=== PATIENT | female | born 1955 | race Caucasian/White ===

== ENCOUNTER → 2016-04-01 | Outpatient (CLI) | payer BC ==
[~2016-04-01] MED LIST: EFF/375 PO; EFFSR150 PO; LISI40TA PO; PANT40TA PO; SYMIN/8045 INH
[2016-04-01 11:28] LABS: BASO % 1.5 %; BASO ABS # 0.05 K/uL (0-0.2); COMPLETE YES; EOS % 2.1 %; HEMATOCRIT 38.4 % (37-47); LYMPH ABS # 1.12 K/uL (1.2-3.4); MEAN CELL VOLUME 95.8 fL (80-100); MEAN CORPUSCULAR HEMOGLOBIN 32.7 pg (25-34); MEAN CORPUSCULAR HGB CONC 34.1 g/dl (32-36); MEAN PLATELET VOLUME 10.5 fL (7.4-10.4); MONO % 21.5 %; NEUT % 41.9 %; PLATELET COUNT 345 K/uL (130-400); RED BLOOD COUNT 4.01 M/uL (4.2-5.4); WHITE BLOOD COUNT 3.39 K/uL (4.8-10.8)
[2016-04-01 11:38] LABS: ALT/SGPT 31 U/L (12-78); AST/SGOT 25 U/L (15-37); BLOOD UREA NITROGEN 18 mg/dl (7-18); BUN/CREATININE RATIO 22.2 (10-20); CALCIUM 8.7 mg/dl (8.5-10.1); CARBON DIOXIDE 28 mmol/L (21-32); CHLORIDE 103 mmol/L (98-107); CREATININE 0.79 mg/dl (0.60-1.20); GLUCOSE 95 mg/dl (70-99); POTASSIUM 4.1 mmol/L (3.5-5.1); SODIUM 138 mmol/L (136-145)
[2016-04-01 11:48] LABS: ALB/GLOB RATIO 1.2 (0.9-2); ALKALINE PHOSPHATASE 70 U/L (45-117); CHOLESTEROL 256 mg/dl (0-200); HDL CHOLESTEROL 127 mg/dl; LDL CHOLESTEROL CALCULATED 121 mg/dl; TRIGLYCERIDES 39 mg/dl (0-150); VERY LOW DENSITY LIPOPROT CALC 8 mg/dl
== END | disposition home or self-care (01) ==
LOC: C.LABBC 07:59
PROVIDERS: ATTEND Internal Medicine
DX: Z00.00 Encounter for general adult medical examination without abnormal findings (principal)

== ENCOUNTER → 2016-07-05 | Outpatient (CLI) | payer BC ==
--- NOTE | 2016-07-06 12:47 | MAMMOGRAPHY REPORT ---
BILATERAL DIGITAL SCREENING MAMMOGRAM TOMOSYNTHESIS WITH CAD: 07/05/2016 CLINICAL HISTORY: Routine screening. Patient has no complaints. TECHNIQUE: Breast tomosynthesis in addition to standard 2D mammography was performed. Current study was also evaluated with a Computer Aided Detection (CAD) system. COMPARISON: Comparison is made to exams dated: 06/29/2015 mammogram, 05/13/2013 mammogram, 05/10/2012 m ammogram, 05/05/2011 mammogram, 05/04/2010 mammogram, and 04/28/2009 mammogram - [facility]. BREAST COMPOSITION: The tissue of both breasts is heterogeneously dense, which may obscure small ma sses. FINDINGS: There is a questionable area of architectural distortion in the posterior left breast, sl ightly lateral to the nipple on the CC view, for which additional spot compression tomosynthesis vie ws and possibly ultrasound are recommended. No other suspicious mass, architectural distortion or cluster of microcalcifications is seen. IMPRESSION: ACR BI-RADS CATEGORY 0: INCOMPLETE EVALUATION: NEED ADDITIONAL IMAGING EVALUATION The questionable area of architectural distortion in the slightly lateral, posterior left breast nee ds additional evaluation. The patient will be called to schedule an appointment. Approximately 10% of breast cancers are not detected with mammography. A negative mammographic repor t should not delay biopsy if a clinically suggestive mass is present. Stacey Dent M.D. ay/:07/05/2016 17:50:47 Rental Agent: Rosa FONTAINE(Eros)(M), [facility] letter sent: Addl Imaging 0 BI-RADS Code: ACR BI-RADS Category 0: Incomplete Evaluation: Need Additional Imaging Evaluation
== END | disposition home or self-care (01) ==
LOC: C.MAMM 13:44
PROVIDERS: ATTEND Obstetrics & Gynecology
DX: Z12.31 Encounter for screening mammogram for malignant neoplasm of breast (principal)

== ENCOUNTER → 2016-07-26 | Outpatient (CLI) | payer BC ==
--- NOTE | 2016-07-26 13:08 | MAMMOGRAPHY REPORT ---
UNILATERAL LEFT DIGITAL DIAGNOSTIC MAMMOGRAM TOMOSYNTHESIS AND TARGETED LEFT ULTRASOUND: 07/26/2016 CLINICAL HISTORY: 61-year-old woman called back from screening mammography for possible architectura l distortion in the posterior left breast, slightly lateral to the posterior nipple line on the CC v iew. No family history of breast cancer. TECHNIQUE: Spot compression left CC and MLO tomosynthesis images were obtained. COMPARISON: Comparison is made to exams dated: 07/05/2016 mammogram, 06/29/2015 mammogram, 05/13/2013 m ammogram, 05/10/2012 mammogram, 05/05/2011 mammogram, and 05/04/2010 mammogram - [facility]ter. BREAST COMPOSITION: The tissue of the left breast is heterogeneously dense, which may obscure small masses. FINDINGS: The spot compression left CC tomosynthesis images and reconstructed CC view demonstrate a persistent 7 mm irregular asymmetry with questionable associated architectural distortion in the fa r posterior, slightly lateral left breast, near the fatglandular interface. When comparing to prio r available mammograms, this appearance is somewhat similar to the 2015 and 2013 exams, but it was n ot definitely seen to appear similar prior to 2013 and remains indeterminate. No corresponding abno rmality is identified on the spot compression MLO views performed in both the superior and inferior aspect of the breasts. Further evaluation with ultrasound was performed. Real-time high resolution sonographic evaluation was performed in the left breast 11:00 through 1:00 , retroareolar, periareolar and 5:00 through 7:00 axes of the left breast. Normal fibroglandular ti ssue is seen without a discrete solid or cystic mass. IMPRESSION: ACR BI-RADS CATEGORY 0: INCOMPLETE EVALUATION: NEED ADDITIONAL IMAGING EVALUATION, TAR GETED ULTRASOUND ACR BI-RADS CATEGORY 0: INCOMPLETE EVALUATION: NEED ADDITIONAL IMAGING EVALUATION There is a persistent 7 mm irregular asymmetry with questionable associated architectural distortion in the posterior left breast, slightly lateral to the posterior nipple line on the CC view. This i s not clearly identified on the MLO view and no sonographic correlate was seen. Therefore, further evaluation with a contrast-enhanced breast MRI is recommended to exclude the possibility of a suspic ious enhancing mass within the left breast. These results and recommendations were discussed with the patient at the time of the exam. Approximately 10% of breast cancers are not detected with mammography. A negative mammographic repor t should not delay biopsy if a clinically suggestive mass is present. Stacey Dent M.D. ay/:07/26/2016 09:26:06 Horticultural Worker: Andreea FONTAINE(Eros)(M), [facility] letter sent: Addl Imaging 0 BI-RADS Code: ACR BI-RADS Category 0: Incomplete Evaluation: Need Additional Imaging Evaluation Ul trasound BI-RADS: ACR BI-RADS Category 0: Incomplete Evaluation: Need Additional Imaging Evaluation
== END | disposition home or self-care (01) ==
LOC: C.MAMM 08:01
PROVIDERS: ATTEND Obstetrics & Gynecology
DX: N64.89 Other specified disorders of breast (principal)

== ENCOUNTER → 2016-07-29 | Outpatient (CLI) | payer BC ==
[2016-07-29 11:23] LABS: CREATININE 0.85 mg/dl (0.60-1.20)
== END | disposition home or self-care (01) ==
LOC: C.LABBC 07:38
PROVIDERS: ATTEND Obstetrics & Gynecology
DX: R92.8 Other abnormal and inconclusive findings on diagnostic imaging of breast (principal)

== ENCOUNTER → 2016-08-03 | Outpatient (CLI) | payer BC ==
[~2016-08-03] MED LIST changes: +GADAVIST IV PRN
--- NOTE | 2016-08-03 13:16 | MAMMOGRAPHY REPORT ---
BREAST MRI OF BOTH BREASTS : 08/03/2016 CLINICAL HISTORY: Asymmetry seen within the posterior left breast on the cc mammographic view of a r ecent diagnostic workup, for which no sonographic correlate was evident. COMPARISON: Comparison is made to exams dated: 07/26/2016 mammogram, 07/05/2016 mammogram, 06/29/2015 ma mmogram, 05/13/2013 mammogram, 05/10/2012 mammogram, and 12/06/2011 mammogram - [facility] enter. Technique: The patient was placed prone in a dedicated breast imaging coil. Precontrast axial T1-we ighted, axial T2-weighted fat saturation, and axial T1-weighted fat saturation images were obtained. After the administration of 6.5 mL of Gadavist IV contrast, sequential T1-weighted fat saturation images were obtained. Subtraction images were obtained of the dynamic contrast enhanced sequences, and 3-D reformations were performed. The [employer] software was used for kinetic analysis. Findings: There is mild background parenchymal enhancement involving bilateral breasts. There are no suspicio us enhancing masses or areas of abnormal non-mass enhancement seen within either breast. Specifical ly, there is no abnormal enhancement seen in the region of the asymmetry in the posterior left breas t on the left cc view from the diagnostic workup dated 07/26/2016. Given the lack of corresponding MR I abnormality and given that the finding appears similar to some of the prior exams including the exam, the asymmetry is benign and felt to represent normal fibroglandular tissue. There is no evidence of axillary adenopathy. The chest wall structures are negative. Extramammary soft tissues are unremarkable. IMPRESSION: ACR BI-RADS CATEGORY 2: BENIGN No MRI evidence of malignancy in either breast. No MRI abnormality in the region of the left breast mammographic asymmetry. Given the lack of corresponding MRI abnormality and given that the asymmet ry appears similar to prior exams including the 05/13/2013 exam, the asymmetry is benign and felt to represent normal fibroglandular tissue. Return to routine annual mammography schedule is nel Fiore M.D. /:08/03/2016 12:38:40 Research Lab Assistant: executive account manager, [facility] letter sent: Normal 1/2 BI-RADS Code: ACR BI-RADS Category 2: Benign
== END | disposition home or self-care (01) ==
LOC: C.MRI 06:28
PROVIDERS: ATTEND Obstetrics & Gynecology
DX: R92.8 Other abnormal and inconclusive findings on diagnostic imaging of breast (principal)

== ENCOUNTER → 2016-09-21 | Outpatient (CLI) | payer BC ==
[~2016-09-21] MED LIST changes: -GADAVIST IV PRN
--- NOTE | 2016-09-21 15:30 | DIAGNOSTIC IMAGING REPORT ---
CHEST 2 VIEWS ROUTINE CLINICAL HISTORY: K21.9 Gastroesophageal reflux disease without [id number] Head chest pain COMPARISON STUDY: 09/11/2014 FINDINGS: Lungs are clear. Calcified granuloma right upper lung. Diaphragms are smooth. IMPRESSION: Chronic change. No acute process. Electronically signed by: Jeremiah Tucker M.D. 09/21/2016 3:28 PM Dictated Date/Time: 09/21/2016 3:28 PM
[2016-09-21 16:56] LABS: BASO % 0.4 %; BASO ABS # 0.03 K/uL (0-0.2); COMPLETE YES; EOS % 0.6 %; HEMATOCRIT 39.5 % (37-47); LYMPH % 15.6 %; LYMPH ABS # 1.27 K/uL (1.2-3.4); MEAN CELL VOLUME 96.8 fL (80-100); MEAN CORPUSCULAR HEMOGLOBIN 31.1 pg (25-34); MEAN CORPUSCULAR HGB CONC 32.2 g/dl (32-36); MEAN PLATELET VOLUME 10.3 fL (7.4-10.4); MONO % 9.2 %; NEUT % 74.2 %; PLATELET COUNT 373 K/uL (130-400); RED BLOOD COUNT 4.08 M/uL (4.2-5.4); WHITE BLOOD COUNT 8.14 K/uL (4.8-10.8)
[2016-09-21 17:56] LABS: LYME DISEASE AB IGG NEG (NEG); LYME DISEASE AB IGM NEG (NEG)
== END | disposition home or self-care (01) ==
LOC: C.RADBC 14:15
PROVIDERS: ATTEND Physician Assistant Medical
DX: R50.9 Fever, unspecified (principal); K21.9 Gastro-esophageal reflux disease without esophagitis; R51 Headache; Z11.59 Encounter for screening for other viral diseases

== ENCOUNTER → 2016-11-09 | Outpatient (CLI) | payer BC ==
[2016-11-09 16:57] LABS: URINE APPEARANCE CLEAR (CLEAR); URINE BILIRUBIN NEG (NEG); URINE COLOR DK YELLOW; URINE NITRITE NEG (NEG); URINE SPECIFIC GRAVITY 1.025 (1.000-1.030); UROBILINOGEN NEG (NEG)
[2016-11-09 16:58] LABS: MANUAL MICROSCOPIC REQUIRED? NO; REVIEW REQ? NO
== END | disposition home or self-care (01) ==
LOC: C.LABSPEC 16:16
PROVIDERS: ATTEND Obstetrics & Gynecology
DX: R39.89 Other symptoms and signs involving the genitourinary system (principal)

== ENCOUNTER → 2017-07-06 | Outpatient (CLI) | payer OTHER ==
--- NOTE | 2017-07-07 07:44 | MAMMOGRAPHY REPORT ---
BILATERAL DIGITAL SCREENING MAMMOGRAM TOMOSYNTHESIS WITH CAD: 07/06/2017 CLINICAL HISTORY: Routine screening. Patient has no complaints. TECHNIQUE: Breast tomosynthesis in addition to standard 2D mammography was performed. Current study was also evaluated with a Computer Aided Detection (CAD) system. COMPARISON: Comparison is made to exams dated: 08/03/2016 breast MRI, 07/26/2016 ultrasound, 07/26/2016 m ammogram, 07/05/2016 mammogram, 06/29/2015 mammogram, and 05/13/2013 mammogram - [facility] nter. BREAST COMPOSITION: The tissue of both breasts is heterogeneously dense, which may obscure small mas ses. FINDINGS: No suspicious masses, calcifications, or areas of architectural distortion are noted in ei ther breast. There has been no significant interval change compared to prior exams. IMPRESSION: ACR BI-RADS CATEGORY 1: NEGATIVE There is no mammographic evidence of malignancy. A 1 year screening mammogram is recommended. The pa tient will receive written notification of the results. Approximately 10% of breast cancers are not detected with mammography. A negative mammographic report should not delay biopsy if a clinically suggestive mass is present. Edie Fiore M.D. ah/:07/06/2017 15:24:57 Gis Web Developer: Rosa Fields RT(R)(M), [facility] letter sent: Normal 1/2 BI-RADS Code: ACR BI-RADS Category 1: Negative
== END | disposition home or self-care (01) ==
LOC: C.MAMM 12:19
PROVIDERS: ATTEND Obstetrics & Gynecology
DX: Z12.31 Encounter for screening mammogram for malignant neoplasm of breast (principal)

== ENCOUNTER 2024-04-04 15:09 | Observation (INO) ==
--- NOTE | 2024-04-04 15:16 | ED Triage Note ---
Date of Service April 04, 2024 Provider in Triage Author: Adal Merino History of Present Illness This patient was briefly evaluated while in triage. An abbreviated physical exam was performed. 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 Nontender to palpation. NEURO: ambulatory into triage with steady gait, speech clear, no facial droop, no extremity weakness Initial orders for labs and / or imaging were placed and patient was placed in the waiting area until a bed is available. Please see further documentation for the full ED course.
[2024-04-04 15:49] LABS: Basophils # (auto) 0.03 K/uL (0.00-0.20); Basophils % (auto) 0.8 %; Eosinophils # (auto) 0.02 K/uL (0.00-0.50); Eosinophils % (auto) 0.6 %; Hematocrit (blood only) 39.9 % (37.0-47.0); Hemoglobin 13.9 g/dl (12.0-16.0); Immature Granulocytes # (auto) 0.02 K/uL (0.01-0.20); Immature Granulocytes % (auto) 0.6 %; Lymphocytes # (auto) 1.13 K/uL (1.20-3.40); Lymphocytes % (auto) 31.7 %; Mean Corpuscular Hemoglobin 32.3 pg (25.0-34.0); Mean Corpuscular Hgb Conc 34.8 g/dL (32.0-36.0); Mean Corpuscular Volume 92.6 fL (80.0-100.0); Mean Platelet Volume 9.6 fL (9.4-12.4); Monocytes # (auto) 0.71 K/uL (0.11-0.59); Monocytes % (auto) 19.9 %; Neutrophils # (auto) 1.66 K/uL (1.40-6.50); Neutrophils % (auto) 46.4 %; Platelet Count 299 K/uL (130-400); RDW Coefficient of Variation 12.1 % (11.5-14.5); RDW Standard Deviation 41.5 fL (36.4-46.3); Red Blood Count 4.31 M/uL (4.20-5.40); White Blood Count 3.57 K/ul (4.8-10.8)
[2024-04-04 16:02] LABS: INR 0.9 (0.9-1.1); Partial Thromboplastin Ratio 1.1; Partial Thromboplastin Time 30 Seconds (21-31); Prothrombin Time 10.3 Seconds (9.0-12.0)
[2024-04-04 16:13] LABS: Appearance Urine Turbid (Clear); Bacteria Urine Automated None Seen (None Seen); Bilirubin Urine Negative (Negative); Blood Urine 2+ (Negative); Calcium Oxalate Crystals Urine Present (None Prsent); Color Urine Yellow; Epithelial Cell Urine Auto 0-2 /hpf (0-2); Glucose Urine UA Negative (Negative); Hyaline Casts Urine Present /lpf (None Presnt); Ketones Urine Negative (Negative); Leukocyte Esterase Urine 3+ (Negative); Nitrite Urine Negative (Negative); Protein Urine Negative (Negative); RBC Urine Automated >20 /hpf (0-2); Specific Gravity Urine 1.011 (1.000-1.030); Urobilinogen Urine Negative (Negative); WBC Urine Automated 0-5 /hpf (0-5); pH Urine 5.5 (4.5-7.5)
[2024-04-04 16:18] LABS: Troponin I High Sensitivity 5.6 pg/ml (0-14)
--- NOTE | 2024-04-04 16:25 | XRay Report ---
EXAM: Radiograph of the Chest 1 View INDICATION: Weakness and confusion. TECHNIQUE: Frontal view of the chest. COMPARISON: 02/27/2024 and 02/02/2024 FINDINGS: Lungs and pleural spaces: Stable dense nodule likely granuloma in the right upper lobe measuring approximately 8 x 12 mm. Relatively lucency in the apices stable consistent with COPD. No consolidation or pulmonary edema. No pleural effusion or pneumothorax. Heart: Shape and configuration within normal limits allowing for technique. Mediastinum: Normal contour. Bones/joints: No fracture, erosion or dislocation. Soft tissues: No abnormality noted. No radiopaque foreign body noted. Upper abdomen: No abnormality noted. IMPRESSION: No acute cardiopulmonary disease. ACT 112: Negative or not required by law. Electronically signed by Karolina Glasgow 04-04-2024 4:24 PM
[2024-04-04 16:34] LABS: Bilirubin,Total 0.4 mg/dl (0.2-1.0); Calcium 8.2 mg/dl (8.6-10.3); Magnesium 1.8 mg/dl (1.7-2.4); Potassium 3.6 mmol/L (3.5-5.1)
[2024-04-04 16:40] LABS: Albumin Globulin Ratio 1.4 (0.9-2); BUN Creatinine Ratio 15.8 (10-20); Globulin 2.9 gm/dl (2.5-4.0); Total Protein 6.9 gm/dl (6.0-8.3)
[2024-04-04 16:41] LABS: Adenovirus PCR Not Detected (NotDetected); Bordetella parapertussis PCR Not Detected (NotDetected); Bordetella pertussis PCR Not Detected (NotDetected); Chlamydia pneumoniae PCR Not Detected (NotDetected); Coronavirus 229E PCR Not Detected (NotDetected); Coronavirus CoV-2 (COVID19)PCR Not Detected (NotDetected); Coronavirus HKU1 PCR Not Detected (NotDetected); Coronavirus NL63 PCR Not Detected (NotDetected); Coronavirus OC43PCR Not Detected (NotDetected); Human Metapneumovirus PCR Not Detected (NotDetected); Influenza A (H3) PCR DETECTED (NotDetected); Influenza B PCR Not Detected (NotDetected); Mycoplasma pneumoniae PCR Not Detected (NotDetected); Parainfluenza Virus 1 PCR Not Detected (NotDetected); Parainfluenza Virus 2 PCR Not Detected (NotDetected); Parainfluenza Virus 3 PCR Not Detected (NotDetected); Parainfluenza Virus 4 PCR Not Detected (NotDetected); Respiratory Syncytial VirusPCR Not Detected (NotDetected); Rhinovirus/Enterovirus PCR Not Detected (NotDetected)
[2024-04-04] MEDS: OPTIRAY 320 125ml IV ONE (16:51)
--- NOTE | 2024-04-04 16:51 | Electrocardiogram Report ---
Test Reason : Blood Pressure : */* mmHG Vent. Rate : 77 BPM Atrial Rate : 77 BPM P-R Int : 154 ms QRS Dur : 88 ms QT Int : 392 ms P-R-T Axes : 60 53 75 degrees QTcB Int : 443 ms Normal sinus rhythm Normal ECG When compared with ECG of 07-Nov-2023 19:34, No significant change was found Confirmed by Filippo Cano ([id number]) on 04/04/2024 4:50:55 PM Referred By: Confirmed By: Filippo Cano
--- NOTE | 2024-04-04 16:58 | CT Scan Report ---
Clinical History: Neurological deficit Technique: Axial computed tomography images were obtained of the brain without intravenous contrast. Comparison is made to the prior CT dated 11/07/2023 Findings: There is unchanged cerebral atrophy, within expected limits for the patient's age. Areas of decreased attenuation are seen within the periventricular white matter, likely representing chronic small vessel ischemic disease. There is no definite sign of acute or old infarction. No intracranial hemorrhage is evident. No definite mass lesion is seen on this noncontrast examination. There is no midline shift or other form of herniation. No hydrocephalus is seen. No fracture is identified. The orbits and the visualized paranasal sinuses appear unremarkable. The mastoid air cells appear clear. Impression: 1. Cerebral atrophy and chronic small vessel ischemic disease 2. Otherwise unremarkable noncontrast CT of the brain Electronically signed by Temo Turner 04-04-2024 4:57 PM
--- NOTE | 2024-04-04 17:17 | CT Scan Report ---
Clinical history: Neurological deficit Technique: Axial computed tomography images were obtained of the brain after the administration of intravenous contrast according to the CT angiogram protocol Findings: No definite stenosis or aneurysm is seen of the anterior, middle, or posterior cerebral artery circulations. The visualized vertebral arteries and the basilar artery appear unremarkable Impression: No definite stenosis or aneurysm of the intracranial arteries Electronically signed by Temo Turner 04-04-2024 5:11 PM
--- NOTE | 2024-04-04 17:18 | CT Scan Report ---
Clinical history: Altered mental status Technique: Axial computed tomography images were obtained of the neck after the administration of intravenous contrast according to the CT angiogram protocol Findings: There is a mild stenosis of the mid left common carotid artery with 30-40% diameter narrowing. There is a mild stenosis of the left carotid bulb with approximately 30% diameter narrowing. The remainder of the left internal carotid artery appears unremarkable No stenosis is seen of the right common carotid artery. The right carotid bulb appears normal. There is mild calcified plaque in the proximal right internal carotid artery, with less than 25% diameter narrowing. No stenosis of the external carotid arteries is seen The right vertebral artery is dominant. There is mild plaque in the distal right vertebral artery, without significant stenosis. The visualized thoracic aorta appears unremarkable There is multilevel degenerative disc disease and osteoarthritis of the cervical spine. There is a partially calcified nodule in the right upper lobe, likely a benign granuloma. There are irregular opacities in the lung apices, likely due to pleural-parenchymal scarring. There is apparent peripheral bronchial plugging in the right upper lobe. There is partially visualized mediastinal adenopathy Impression: 1. Mild stenosis of left carotid bulb 2. Mild stenosis of the mid left CCA 3. Mild plaque in the proximal right ICA, without stenosis 4. Mediastinal adenopathy, nonspecific in nature. Chest CT could be obtained for further evaluation Electronically signed by Temo Turner 04-04-2024 5:17 PM
[2024-04-04] MEDS: ASPIRIN CHEW 324 MG PO STA (18:06)
[2024-04-04] MEDS: OSELTAMIVIR PHOSPHATE 75 MG CAP PO STA (18:06)
--- NOTE | 2024-04-04 20:05 | History & Physical Report ---
Date of Service April 04, 2024 Assessment & Plan (1) Aphasia: (2) Influenza A: Plan 68-year-old female PMHx HLD, HTN, asthma, OP, MS, and vitamin B12 deficiency presenting to ED for an aphasic episode. States that the episode around 1200- 1300 today arrival, lasting approximately 30 minutes in duration and then resolved. Was unable to read news article or prescription bottles, but able to understand spoken words. No additional neurological symptoms were experienced at this time. Upon admission, symptoms had resolved but she came to be evaluated as recommended by her PCP. #Aphasic episode, resolved Presenting w/ aphasic episode lasting approximately 30 minutes, without ad ditional neuro deficits, no deficits on exam, no current symptoms. Case is discussed between ED physician and neurologist recommending aspirin and stroke workup. CT head and CTA head/neck w/o acute findings. ABCD2 score 3 (age, elevated BP, duration of symptoms). - CT head cerebral atrophy chronic small vessel disease; head CTA stenosis or aneurysm intracranial arteries; neck CTA mild stenosis L carotid bulb and L CCA, mild plaque in proximal R ICA without stenosis, mediastinal adenopathy (h/o pulm nodules per chart) - Troponin 5.6; EKG normal sinus rate 77 bpm; pending 2D Echo Bubble - A1c (07/2023) 5.9%, pending repeat; lipid panel (2020) total 225, LDH 166, HDL 73, TG 67, pending repeat- On rosuvastatin 5mg 3x/w (MWF) - Will increase to high intensity pending lipid results - Initiate DVT prevention therapy - lovenox - following MRI - ASA 324mg given in ED; continue 81mg daily - No DAPT added, ABCD2 score 3 - Will allow for permissive HTN until MRI results, losartan held at admission - Labetalol 10mg IV prn q10min SBP > 200 - MRI pending #Influenza A ~ 1 week of cough, body aches, sore throat; No alleviating symptoms. Did not get yearly influenza vaccine in the past but does normally receive this vaccine - BioFire positive for influenza A; CXR without acute cardiopulmonary disease; Lungs unremarkable on exam - Tamiflu 75mg BID daily; added Chloraseptic spray for sore throat prn - Given h/o asthma, throat pain when coughing, and fear of coughing as to not aggravate throat pain - Inhalers switched to nebs #Hyponatremia Likely secondary to poor oral intake over past week from illness; no overt symptoms at this time. Clinically hypovolemic. - Na 131; glucose WNL-- Deferred serum osmol, urine Na, and urine osmol at time of admission; if Na does not improve then consider obtaining - Promote oral hydration, will add fluids as necessary following MRI - BMP am #Hypocalcemia Asymptomatic currently, on calcium carbonate 1000mg daily as outpatient. - Ca 8.2, albumin WNL - Increase Ca carb to twice daily- Recheck am #Multiple sclerosis, Uhthoff phenomenon- Recent neurology visit 10/2023 in [place], most recent MRI May 2022 mild lesion in periventricular area involving corpus callosum, MRI spine with chronic C2 demyelination lesion #Asthma/allergic rhinitis- Inhalers adjusted to nebs for inpatient course but then to switch back to inhalers at discharge, loratadine, montelukast #HTN- Losartan #HLD- Rosuvastatin 5mg 3x/week as outpatient (M//) #OAB- Follows with urology; Vibegron #Anxiety- Venlafaxine #OP- Prolia SQ outpatient, not to be given inpatient Dispo: Admit, med telemetry VTE prophylaxis: Lovenox This document was dictated utilizing [employer]. Please excuse any grammatical errors that may be secondary to use of this software. Admission and Anticipated Discharge Date Admission Date: 04/04/2024 History of Present Illness Chief Complaint: Aphasia Primary Care Provider: Rama Morris MD 68-year-old female PMHx HLD, HTN, asthma, OP, MS, and vitamin B12 deficiency presenting to ED for an aphasic episode. States that the episode around 1200- 1300 today arrival, lasting approximately 30 minutes in duration and then resolved. States that she was sitting on her couch reading the news when suddenly she was unable to understand the words that were on the article. States after that she decided to go get a drink because she thought maybe she was dehydrated and then took her antidepressants at that time as well. She states that whenever she went to her medicine once, she was only able to recognize the bottle of antidepressants as the bottle is larger in size than her other medications, but she was unable to read what was on any of the bottles or understand what they said. States that she got more to drink and then sat back down on the couch and was watching an episode on President James where people were sitting in remembrance of him, however she could not recall who the people were more read the words on the screen but she could understand the words that were being sung. She states this did resolve rather momentarily with no more than 30 minutes of duration total, she felt "spacey" after the episode. Denying any additional symptoms at this time, to include weakness, numbness/tingling, headache, vision changes, or dizziness. Also reports she has been sick for the past week with headache, sore throat, body aches and cough. She is not active this week as she was trying to heal from the illness, but her main complaint was sore throat whenever she is coughing. She is denying chest pain, shortness of breath, palpitations, abdominal pain, N/V/D/C, or LUTS. Patient only took her antidepressants today does not believe that she took other medications. Please see Dr. Jurado's attestation for adjustments/additions to treatment plan. Allergies Allergy/AdvReac Type Severity Reaction Status Date / Time erythromycin base Allergy Severe chest pain Verified 04/04/24 18:08 DELANEY Inhibitors Allergy HEADACHE Verified 04/04/24 18:08 bupropion [From Wellbutrin] Allergy "DIDN'T Verified 04/04/24 18:08 WORK" citalopram [From Celexa] Allergy "DIDN'T Verified 04/04/24 18:08 WORK" glatiramer (copolymer 1) Allergy "SPLITTING Verified 04/04/24 18:08 [From Copaxone] HEADACHE," INJECTION SITE INFLAMMED AND RED sertraline [From Zoloft] Allergy "DIDN'T Verified 04/04/24 18:08 WORK" alendronate sodium AdvReac Severe Joint Pain Verified 04/04/24 18:08 naltrexone AdvReac Intermediate depression Verified 04/04/24 18:08 Home Medications Medication Instructions Recorded Confirmed Type cholecalciferol (vitamin D3) 50 50 mcg PO QAM 07/28/22 04/04/24 History mcg (2,000 unit) capsule loratadine 10 mg tablet 10 mg PO QAM 07/28/22 04/04/24 History mecobalamin (vitamin B12) 1,000 1,000 mcg PO DAILY #90 tabs 08/29/23 04/04/24 Rx mcg chewable tablet albuterol sulfate 90 mcg/actuation 2 puff inhalation Q6H PRN 08/30/23 04/04/24 Rx aerosol inhaler shortness of breath or wheezing #20.1 grams montelukast 10 mg tablet 10 mg PO QAM #90 tabs 10/13/23 04/04/24 Rx venlafaxine 150 mg 150 mg PO QAM #90 caps 10/13/23 04/04/24 Rx capsule,extended release 24 hr venlafaxine 37.5 mg 37.5 mg PO QAM #90 caps 10/13/23 04/04/24 Rx capsule,extended release 24 hr Spacer for Inhaler #1 ea 02/02/24 03/07/24 Rx ciclesonide 80 mcg/actuation 2 puff inhalation BID #6.1 grams 02/02/24 04/04/24 Rx aerosol inhaler (Alvesco) biotin 5,000 mcg chewable tablet 5,000 mcg PO DAILY 02/12/24 04/04/24 History calcium carbonate 1,000 mg PO QAM 02/12/24 04/04/24 History azelastine 137 mcg (0.1 %) nasal 2 spray intranasal DAILY #30 mL 02/15/24 04/04/24 Rx spray losartan 25 mg tablet 25 mg PO QAM #90 tabs 03/11/24 04/04/24 Rx denosumab 60 mg/mL subcutaneous 60 mg subcut UD 03/28/24 04/04/24 History syringe (Prolia) rosuvastatin 5 mg tablet 5 mg PO 3XWK 03/28/24 04/04/24 History peg 3350-sod sulf,[id number] See Rx Instructions PO .COMPLEX #2 03/29/24 04/04/24 Rx 178.7-7.3-0.5-1.12-0.9 gram oral mL soln (Suflave) vibegron 75 mg tablet (Gemtesa) 75 mg PO DAILY #30 tabs 04/01/24 04/04/24 Rx Past Med/Surg History Problem List (Updated 04/04/24 @ 21:59 by Background Daemon) Influenza (Acute) TIA (transient ischemic attack) (Acute) Influenza A Aphasia Encounter for pre-operative examination Epigastric pain Chronic cough Fecal incontinence Urinary incontinence Disc degeneration, lumbosacral Degenerative spondylolisthesis Biceps tendonitis on left Frequent loose stools Osteoporosis Vitamin B12 deficiency Health care maintenance Olecranon bursitis, right elbow Tendinitis of left rotator cuff Primary osteoarthritis, left shoulder Lumbar spinal stenosis Sensorineural hearing loss of both ears Leukopenia Osteoarthritis of right knee Hyperlipidemia Thoracic compression fracture Allergic rhinitis (Acute) Depression (Acute) Pulmonary nodules NO LONGER MONITORING>NO CHANGES Hypertension (Chronic) Multiple sclerosis (Chronic) Asthma (Chronic) INH AND INJECTIBLE MED Medical History Urinary incontinence History of multiple pulmonary nodules no longer monitoring, no change in size Osteoarthritis of right knee Olecranon bursitis of right elbow Multiple sclerosis Lumbar spinal stenosis Hypertension Hyperlipidemia Frequent loose stools Fecal incontinence Disc degeneration, lumbosacral Depression Degenerative spondylolisthesis Asthma daily and prn inh (uses w/exercise) Osteopenia after menopause Left temporal headache hx Vascular abnormality left temporal area, "cause of pt's temporal headaches in the past," no recent issues Gastroesophageal reflux disease without esophagitis Hypothyroidism pt unaware of this? History of COVID-19 3x in 2021, no residual symptoms Cough LONG COVID SYMPTOM FROM 01/2022>NOW RESOLVED Biceps tendinitis of left shoulder ongoing; has received injections in past Alcohol use disorder hx Surgical History History of dilatation and curettage Hx of LASIK Hx of colonoscopy History of section History of wisdom tooth extraction History of hand surgery History of foot surgery Family History Mother Hypertension Myocardial infarction Unknown Hypertension Hyperlipidemia Brother Alcoholism Acute myocardial infarction Father at age 72 Diabetes Myocardial infarction Stroke Denies family history of Ovarian cancer Prostate cancer Breast cancer Lung cancer Colorectal cancer Social History Smoking Status: Never smoker Second Hand Exposure: No; Do You Dip or Chew Tobacco: No; Hx Alcohol Use: Yes (quit 5 years ago) Alcohol type: wine Alcohol Intake Freque ncy: Monthly or Less Hx Substance Use: No Preferred Language: Czech Communication Ability: Effective Visual Impairment: Limited Hearing Ability: Normal Process Trainer Required: No Beliefs That Will Affect Care: None marital status: Current Living Situation: Spouse current occupational status: retired How many Children do You have: 1 Feels Safe at Home: Yes Childhood Exposure to Second-Hand Smoke: No caffeine: Yes during the past year weight has: decreased > 10 lbs Dental Care, Regularly: Yes Physical Activity Frequency: 5-6 Times per Week Seatbelt Use: always Sunscreen Use: Yes Assistive Devices: Glasses Review of Systems 2 Review of Systems: All systems reviewed & are unremarkable except as noted in Subjective Physical Exam Physical Exam: General: No acute distress Skin: Warm and dry, without rashes or lesions Head: Normocephalic, atraumatic Eyes: PERRL, conjunctivae clear, sclera non-icteric; EOM intact ENT: External ear and ear canal without swelling; nose atraumatic; good dentition, tongue normal appearance, pharynx normal without tonsillar swelling or exudate Neck: Supple, no LAD; no JVD Cardio: RRR, no M/G/R, S1 and S2 normal Resp: No respiratory distress; initally ? crackles but resolved w/ cough; Lungs CTA in all lobes bilaterally, no wheezes, rales, or rhonchi Abdomen: Soft, symmetric, nontender; No masses or hepatosplenomegaly; Bowel sounds normoactive MSK: No deformities, full ROM throughout; pulses palpable and equal; no edema. Neuro: II- PERRL, no VF deficits III, IV, - EOMs intact, no deviation, no nystagmus V- Normal sensation in all locations VII- No asymmetry, no nasolabial fold flattening VIII- Normal hearing to speech IX, X- Normal palatal elevation, no ulnar deviation XI- 5/5 head turn + shoulder shrug bilaterally XII- Midline tongue protrusion Motor: 4/5 strength throughout BUE/BLE; no pronator drift Reflexes: WNL throughout Sensory: Normal sensation throughout, no hemineglect, Romberg absent Coordination: Normal [id number], no tremor Gait: Unable to asses; no complaints Psych: Appropriate mood and affect; good judgement and insight. present in room at time of visit. Results & Data Results & Data Vital Signs (Past 12 Hours) Vital Signs Temp Pulse Pulse Resp BP BP Pulse Ox 04/04/24 19:06 70 19 04/04/24 19:00 146/84 H 04/04/24 18:54 69 21 04/04/24 18:51 71 20 04/04/24 18:31 141/87 H 04/04/24 18:21 70 12 04/04/24 18:09 67 18 04/04/24 18:01 151/76 H 04/04/24 17:59 68 04/04/24 17:47 98 H 18 157/100 H 96 04/04/24 17:00 160/83 H 04/04/24 16:57 70 16 96 04/04/24 16:33 72 20 97 04/04/24 16:31 159/80 H 04/04/24 16:15 69 17 97 04/04/24 16:09 73 16 96 04/04/24 15:55 71 18 141/80 H 97 04/04/24 15:55 04/04/24 15:17 63 18 98 04/04/24 15:13 36.6 C 89 20 163/81 H 96 O2 Del Method 04/04/24 19:06 04/04/24 19:00 04/04/24 18:54 04/04/24 18:51 04/04/24 18:31 04/04/24 18:21 04/04/24 18:09 04/04/24 18:01 04/04/24 17:59 04/04/24 17:47 Room Air 04/04/24 17:00 04/04/24 16:57 Room Air 04/04/24 16:33 Room Air 04/04/24 16:31 04/04/24 16:15 Room Air 04/04/24 16:09 Room Air 04/04/24 15:55 04/04/24 15:55 Room Air 04/04/24 15:17 Room Air 04/04/24 15:13 Room Air Laboratory Results 04/04/24 04/04/24 15:54 15:38 WBC 3.57 L RBC 4.31 Hgb 13.9 Hct 39.9 MCV 92.6 MCH 32.3 MCHC 34.8 RDW Std Deviation 41.5 RDW Coeff of Blessing 12.1 Plt Count 299 MPV 9.6 Immature Gran % (Auto) 0.6 Neut % (Auto) 46.4 Lymph % (Auto) 31.7 Thomas % (Auto) 19.9 Eos % (Auto) 0.6 Baso % (Auto) 0.8 Neut # (Auto) 1.66 Lymph # (Auto) 1.13 L Thomas # (Auto) 0.71 H Eos # (Auto) 0.02 Baso # (Auto) 0.03 Immature Gran # (Auto) 0.02 PT 10.3 INR 0.9 APTT 30 PTT Ratio 1.1 Sodium 131 L Potassium 3.6 Chloride 96 L Carbon Dioxide 25 Anion Gap 10 BUN 12 Creatinine 0.76 Est Cr Clr Drug Dosing 62.0 eGFR 85.83 BUN/Creatinine Ratio 15.8 Glucose 85 Calcium 8.2 L Magnesium 1.8 Total Bilirubin 0.4 AST 28 ALT 29 Alkaline Phosphatase 55 Troponin I High Sens 5.6 Total Protein 6.9 Albumin 4.0 Globulin 2.9 Albumin/Globulin Ratio 1.4 Urine Color Yellow Urine Appearance Turbid A Urine pH 5.5 Ur Specific Ber[place] 1.011 Urine Protein Negative Urine Glucose (UA) Negative Urine Ketones Negative Urine Blood 2+ H Urine Nitrite Negative Urine Bilirubin Negative Urine Urobilinogen Negative Ur Leukocyte Esterase 3+ H Urine WBC (Auto) 0-5 Urine RBC (Auto) >20 H U Hyaline Cast (Auto) 3-5 H U Epithel Cells (Auto) 0-2 Urine Bacteria (Auto) None Seen Calcium Oxalate Crystal Present A Hyaline Casts Present A Adenovirus (PCR) Not Detected B. pertussis DNA (PCR) Not Detected B.parapertussis DNA PCR Not Detected C. pneumoniae DNA (PCR) Not Detected Coronavirus OC43 (PCR) Not Detected Coronavirus HKU1 (PCR) Not Detected Coronavirus 229E (PCR) Not Detected SARS-CoV-2 (PCR) Not Detected Coronavirus NL63 (PCR) Not Detected Human Metapneumovir PCR Not Detected Influenza A (H3) PCR DETECTED A Influenza Type B (PCR) Not Detected M. pneumoniae (PCR) Not Detected Parainfluenza 1 (PCR) Not Detected Parainfluenza 2 (PCR) Not Detected Parainfluenza 3 (PCR) Not Detected Parainfluenza 4 (PCR) Not Detected RSV (PCR) Not Detected Entero/Rhino (PCR) Not Detected Diagnostic Findings Chest X-Ray 04/04/24 15:18 EXAM: Radiograph of the Chest 1 View INDICATION: Weakness and confusion. TECHNIQUE: Frontal view of the chest. COMPARISON: 02/27/2024 and 02/02/2024 FINDINGS: Lungs and pleural spaces: Stable dense nodule likely granuloma in the right upper lobe measuring approximately 8 x 12 mm. Relatively lucency in the apices stable consistent with COPD. No consolidation or pulmonary edema. No pleural effusion or pneumothorax. Heart: Shape and configuration within normal limits allowing for technique. Mediastinum: Normal contour. Bones/joints: No fracture, erosion or dislocation. Soft tissues: No abnormality noted. No radiopaque foreign body noted. Upper abdomen: No abnormality noted. IMPRESSION: No acute cardiopulmonary disease. ACT 112: Negative or not required by law. Electronically signed by Karolina Glasgow 04-04-2024 4:[address] 04/04/24 16:03 Clinical History: Neurological deficit Technique: Axial computed tomography images were obtained of the brain without intravenous contrast. Comparison is made to the prior CT dated 11/07/2023 Findings: There is unchanged cerebral atrophy, within expected limits for the patient's age. Areas of decreased attenuation are seen within the periventricular white matter, likely representing chronic small vessel ischemic disease. There is no definite sign of acute or old infarction. No intracranial hemorrhage is evident. No definite mass lesion is seen on this noncontrast examination. There is no midline shift or other form of herniation. No hydrocephalus is seen. No fracture is identified. The orbits and the visualized paranasal sinuses appear unremarkable. The mastoid air cells appear clear. Impression: 1. Cerebral atrophy and chronic small vessel ischemic disease 2. Otherwise unremarkable noncontrast CT of the brain Electronically signed by Temo Turner 04-04-2024 4:57 PM Head CTA 04/04/24 16:03 Clinical history: Neurological deficit Technique: Axial computed tomography images were obtained of the brain after the administration of intravenous contrast according to the CT angiogram protocol Findings: No definite stenosis or aneurysm is seen of the anterior, middle, or posterior cerebral artery circulations. The visualized vertebral arteries and the basilar artery appear unremarkable Impression: No definite stenosis or aneurysm of the intracranial arteries Electronically signed by Temo Turner 04-04-2024 5:11 PM Neck CTA 04/04/24 16:03 Clinical history: Altered mental status Technique: Axial computed tomography images were obtained of the neck after the administration of intravenous contrast according to the CT angiogram protocol Findings: There is a mild stenosis of the mid left common carotid artery with 30-40% diameter narrowing. There is a mild stenosis of the left carotid bulb with approximately 30% diameter narrowing. The remainder of the left internal carotid artery appears unremarkable No stenosis is seen of the right common carotid artery. The right carotid bulb appears normal. There is mild calcified plaque in the proximal right internal carotid artery, with less than 25% diameter narrowing. No stenosis of the external carotid arteries is seen The right vertebral artery is dominant. There is mild plaque in the distal right vertebral artery, without significant stenosis. The visualized thoracic aorta appears unremarkable There is multilevel degenerative disc disease and osteoarthritis of the cervical spine. There is a partially calcified nodule in the right upper lobe, likely a benign granuloma. There are irregular opacities in the lung apices, likely due to pleural-parenchymal scarring. There is apparent peripheral bronchial plugging in the right upper lobe. There is partially visualized mediastinal adenopathy Impression: 1. Mild stenosis of left carotid bulb 2. Mild stenosis of the mid left CCA 3. Mild plaque in the proximal right ICA, without stenosis 4. Mediastinal adenopathy, nonspecific in nature. Chest CT could be obtained for further evaluation Electronically signed by Temo Turner 04-04-2024 5:17 PM Medications Administered Osletamivir 75mg po ASA 324mg po ECG Additional Comments: cc: ~ DICTATED BY: Filippo Cano MD Test Reason : Blood Pressure : */* mmHG Vent. Rate : 77 BPM Atrial Rate : 77 BPM P-R Int : 154 ms QRS Dur : 88 ms QT Int : 392 ms P-R-T Axes : 60 53 75 degrees QTcB Int : 443 ms Normal sinus rhythm Normal ECG When compared with ECG of 07-Nov-2023 19:34, No significant change was found Confirmed by Filippo Cano ([id number]) on 04/04/2024 4:50:55 PM Referred By: Confirmed By: Filippo Cano Code Status & VTE Plan Code Status Full VTE Prophylaxis Plan VTE Prophylaxis will be ordered: Yes Supervising Physician Co-Signing Physician Notes Patient seen and examined, chart reviewed, case discussed with JEFFREY Granados and I agree with the assessment and plan as above. In brief, patient is a 68yo female with history of MS presenting with transient episode of inability to read. Patient denies further neurologic deficits. No complaints at present - symptoms have full resolved. On exam she is resting comfortably, NAD MMM, Neck supple +S1/S2, regular, no m/r/g Lungs CTA Abd soft, NT/ND Ext warm, well perfused, no clubbing/cyanosis or edema Labs and images reviewed POSITIVE for Influenza A AGNES with mild patchy periventricular and deep white matter T2 hyperintensities c/w small essel disease. No areas of diffusion restriction seen to indicate acute stroke Assessment/Plan Transient aphasia, inability to read - lasted 30 minutes, now resolved. No additional neurologic complaints MRI brain with no acute CVA Possibly secondary to influenza infection, possibly secondary to MS -Further workup as above, A1C, Lipids and Echo Continue ASA and Rosuvastatin -Remainder as above PG Care Time/CCT Total # of Minutes Spent Total Time Spent with Patient: Total time spent is greater than 50% in coordination of care (as documented) at patient's floor/unit and/or counseling patient: Coding Level of Care Code 49862 INT INP/OBS CARE 3/75MIN Diagnoses Aphasia R47.01 Influenza A J10.1
[2024-04-04] MEDS: LORazepam 2 MG/1 ML VIAL IV STA (20:11)
--- NOTE | 2024-04-04 21:30 | Emergency Department Note ---
Impression & Plan TIA (transient ischemic attack), Influenza ED Provider Note NAME: PAUL NORMAN AGE: 68 SEX: Female INFORMANT: Patient ED PROVIDER(S): Aniket Chaudhary MD CHIEF COMPLAINT: Neuro PLAN: Disposition: Admit Outpatient prescription management: none Referral: None MEDICAL DECISION MAKING: Patient presented because of neurosymptoms. History was concerning for possible TIA given the 30-minute episode and no residual symptoms. Patient had a nonfocal neurologic examination. Vital signs revealed some mild hypertension. Patient underwent CT and CT angiography. No acute findings were noted. Patient had unremarkable laboratory findings except she was influenza positive. Chest x-ray negative. Patient was given Tamiflu and aspirin. I did consult with Dr. Ricks of neurology. He did recommend the official stroke workup as an inpatient. Patient is not a TNK candidate. [facility] with the [facility]. Patient was evaluated in the ER and admitted for further management. Care/management discussed with: none Level of care consideration(s): After review of the information above and other included data, I feel the patient requires escalation of care to admission Triage Nursing notes: reviewed and agree them. Vital Signs: reviewed and remarkable for no significant abnormalities Additional History obtained from: none Chronic Medical/Social Conditions affecting care: none Prior/ Outside/ External records reviewed: none Differential Diagnosis: CVA, TIA, viral syndrome,Infection, dehydration, metabolic abnormality, hypo/hyperglycemia, electrolyte disturbance, anemia, hypoxia, cardiac sources, intracerebral event, toxicologic, neurologic, as well as other pathologies. Diagnostics, independently interpreted by me: ECG: Twelve-lead ECG reveals normal sinus rhythm at 77 beats per minute. No evidence of pericarditis, ischemia, ectopy, or dysrhythmia. Cardiac Monitoring: Cardiac monitoring ordered by me: The patient was placed on continuous cardiac monitoring and observed. It revealed a normal sinus rhythm at 74 beats per minute without ectopy or evidence of dysrhythmia. Medical decision rules: none Imaging studies: Head CT: A noncontrast CT scan of the head was performed and was negative for tumor, fracture, intracranial hemorrhage, or other acute pathology. CT and CT angiography revealed no evidence of acute ischemic event or vessel occlusion. I refer you to the EMR for further details. HPI: 68 year old Female arrives for evaluation of neuro symptoms. Patient presented because of an episode of expressive aphasia. She noted that this was also coupled with receptive aphasia. She could not read or get any words out for about 30 minutes. This occurred about 4 hours ago. Patient has had no persisting symptoms. She notes having a cold for the last 3 days which seems to be stable. Patient has a mild sore throat and cough. Patient also notes some myalgias. Her pain is rated a 7-10. Pt denies LOC, headache, fevers, chills, diaphoresis, visual changes, neck stiffness, chest pain, breathing difficulties, nausea, vomiting, abdominal pain, back pain, melena, hematochezia, urinary symptoms, numbness, weakness, lymphadenopathy, rash, or other complaints. PAST MEDICAL HISTORY: See Below, hypertension PAST SURGICAL HISTORY: See Below, SOCIAL HISTORY: See Below, HOME MEDICATIONS: See Below ALLERGIES: See Below VITALS: See Below PHYSICAL EXAMINATION: GENERAL: Awake, alert, well-appearing, in no distress HENT: Normocephalic, atraumatic. Oropharynx unremarkable. EYES: Normal conjunctiva. Sclera non-icteric. PERRLA. EOMI. NECK: Inspection normal. Non-tender. Supple. No nuchal rigidity. FROM. No masses. RESPIRATORY: Clear to auscultation. No wheezes. No rales. Normal respiratory effort. CARDIAC: Normal rate. Normal rhythm. No murmurs. No rubs. Extremities warm and well perfused. Pulses equal. No JVD. GI: Soft, non-distended. No tenderness to palpation. No rebound or guarding. No masses. RECTAL: Deferred. MUSCULOSKELETAL: Atraumatic. Chest examination reveals no tenderness. The back is symmetrical on inspection without obvious abnormality. There is no CVA tenderness to palpation. No joint edema. LOWER EXTREMITIES: Calves are equal size bilaterally and non-tender. No edema. No discoloration. NEURO: Normal sensorium. No sensory or motor deficits noted. Speech normal. Normal rapid altering movements. No drift. Normal wloy-rh-yaup. SKIN: No rash or jaundice noted. PROCEDURES: none CRITICAL CARE: none OBSERVATION NOTE: none Past Med/Surg History Problem List (Updated 04/04/24 @ 21:30 by Aniket Chaudhary MD) Influenza (Acute) TIA (transient ischemic attack) (Acute) Influenza A Aphasia Encounter for pre-operative examination Epigastric pain Chronic cough Fecal incontinence Urinary incontinence Disc degeneration, lumbosacral Degenerative spondylolisthesis Biceps tendonitis on left Frequent loose stools Osteoporosis Vitamin B12 deficiency Health care maintenance Olecranon bursitis, right elbow Tendinitis of left rotator cuff Primary osteoarthritis, left shoulder Lumbar spinal stenosis Sensorineural hearing loss of both ears Leukopenia Osteoarthritis of right knee Hyperlipidemia Thoracic compression fracture Allergic rhinitis (Acute) Depression (Acute) Pulmonary nodules NO LONGER MONITORING>NO CHANGES Hypertension (Chronic) Multiple sclerosis (Chronic) Asthma (Chronic) INH AND INJECTIBLE MED Medical History Urinary incontinence History of multiple pulmonary nodules no longer monitoring, no change in size Osteoarthritis of right knee Olecranon bursitis of right elbow Multiple sclerosis Lumbar spinal stenosis Hypertension Hyperlipidemia Frequent loose stools Fecal incontinence Disc degeneration, lumbosacral Depression Degenerative spondylolisthesis Asthma daily and prn inh (uses w/exercise) Osteopenia after menopause Left temporal headache hx Vascular abnormality left temporal area, "cause of pt's temporal headaches in the past," no recent issues Gastroesophageal reflux disease without esophagitis Hypothyroidism pt unaware of this? History of COVID-19 3x in 2021, no residual symptoms Cough LONG COVID SYMPTOM FROM 01/2022>NOW RESOLVED Biceps tendinitis of left shoulder ongoing; has received injections in past Alcohol use disorder hx Surgical History History of dilatation and curettage Hx of LASIK Hx of colonoscopy History of section History of wisdom tooth extraction History of hand surgery History of foot surgery Family History Mother Hypertension Myocardial infarction Unknown Hypertension Hyperlipidemia Brother Alcoholism Acute myocardial infarction Father at age 72 Diabetes Myocardial infarction Stroke Denies family history of Ovarian cancer Prostate cancer Breast cancer Lung cancer Colorectal cancer Social History Smoking Status: Never smoker Second Hand Exposure: No; Do You Dip or Chew Tobacco: No; Hx Alcohol Use: Yes (quit 5 years ago) Alcohol type: wine Alcohol Intake Frequency: Monthly or Less Hx Substance Use: No Preferred Language: Swazi Communication Ability: Effective Visual Impairment: Limited Hearing Ability: Normal Supervisor Firearms Required: No Beliefs That Will Affect Care: None marital status: Current Living Situation: Spouse current occupational status: retired How many Children do You have: 1 Feels Safe at Home: Yes Childhood Exposure to Second-Hand Smoke: No caffeine: Yes during the past year weight has: decreased > 10 lbs Dental Care, Regularly: Yes Physical Activity Frequency: 5-6 Times per Week Seatbelt Use: always Sunscreen Use: Yes Assistive Devices: Glasses Allergies Allergies Allergy/AdvReac Type Severity Reaction Status Date / Time erythromycin base Allergy Severe chest pain Verified 04/04/24 18:08 DELANEY Inhibitors Allergy HEADACHE Verified 04/04/24 18:08 bupropion [From Wellbutrin] Allergy "DIDN'T Verified 04/04/24 18:08 WORK" citalopram [From Celexa] Allergy "DIDN'T Verified 04/04/24 18:08 WORK" glatiramer (copolymer 1) Allergy "SPLITTING Verified 04/04/24 18:08 [From Copaxone] HEADACHE," INJECTION SITE INFLAMMED AND RED sertraline [From Zoloft] Allergy "DIDN'T Verified 04/04/24 18:08 WORK" alendronate sodium AdvReac Severe Joint Pain Verified 04/04/24 18:08 naltrexone AdvReac Intermediate depression Verified 04/04/24 18:08 Home Meds Home Medications Medication Instructions Recorded Confirmed cholecalciferol (vitamin D3) 50 50 mcg PO QAM 07/28/22 04/04/24 mcg (2,000 unit) capsule loratadine 10 mg tablet 10 mg PO QAM 07/28/22 04/04/24 biotin 5,000 mcg chewable tablet 5,000 mcg PO DAILY 02/12/24 04/04/24 calcium carbonate 1,000 mg PO QAM 02/12/24 04/04/24 denosumab 60 mg/mL subcutaneous 60 mg subcut UD 03/28/24 04/04/24 syringe (Prolia) rosuvastatin 5 mg tablet 5 mg PO 3XWK 03/28/24 04/04/24 Previous Rx's Medication Instructions Recorded mecobalamin (vitamin B12) 1,000 1,000 mcg PO DAILY #90 tabs 08/29/23 mcg chewable tablet albuterol sulfate 90 mcg/actuation 2 puff inhalation Q6H PRN 08/30/23 aerosol inhaler shortness of breath or wheezing #20.1 grams montelukast 10 mg tablet 10 mg PO QAM #90 tabs 10/13/23 venlafaxine 150 mg 150 mg PO QAM #90 caps 10/13/23 capsule,extended release 24 hr venlafaxine 37.5 mg 37.5 mg PO QAM #90 caps 10/13/23 capsule,extended release 24 hr Spacer for Inhaler #1 ea 02/02/24 ciclesonide 80 mcg/actuation 2 puff inhalation BID #6.1 grams 02/02/24 aerosol inhaler (Alvesco) azelastine 137 mcg (0.1 %) nasal 2 spray intranasal DAILY #30 mL 02/15/24 spray losartan 25 mg tablet 25 mg PO QAM #90 tabs 03/11/24 peg [id number] [id number] See Rx Instructions PO .COMPLEX #2 03/29/24 178.7-7.3-0.5-1.12-0.9 gram oral mL soln (Suflave) vibegron 75 mg tablet (Gemtesa) 75 mg PO DAILY #30 tabs 04/01/24 Results & Data (ED) Vital Signs Vital Signs - 24 hr 04/04/24 15:13 04/04/24 15:17 04/04/24 15:55 Temperature 36.6 C Temperature Source Oral Pulse Rate 89 Pulse Rate [Apical] 63 Pulse Rhythm Regular Pulse Strength Normal Respiratory Rate 20 18 Respiratory Effort / Characteristics Non-Labored Spontaneous Respiratory Depth Normal Respiratory Pattern Regular Blood Pressure 163/81 H Blood Pressure [Left Arm] Blood Pressure Mean 108 Blood Pressure Mean [Left Arm] Blood Pressure Position Sitting Blood Pressure Position [Left Arm] Pulse Oximetry 96 98 Oxygen Delivery Method Room Air Room Air Room Air Sepsis Recent Fever Within 48 Hours No Sepsis New/Unexplained Change in Mental Status No Sepsis Action Taken by Nursing No Action Required 04/04/24 15:55 04/04/24 16:09 04/04/24 16:15 Temperature Temperature Source Pulse Rate 73 69 Pulse Rate [Apical] 71 Pulse Rhythm Pulse Strength Respiratory Rate 18 16 17 Respiratory Effort / Characteristics Respiratory Depth Respiratory Pattern Blood Pressure Blood Pressure [Left Arm] 141/80 H Blood Pressure Mean Blood Pressure Mean [Left Arm] 100 Blood Pressure Position Blood Pressure Position [Left Arm] Pulse Oximetry 97 96 97 Oxygen Delivery Method Room Air Room Air Sepsis Recent Fever Within 48 Hours Sepsis New/Unexplained Change in Mental Status Sepsis Action Taken by Nursing 04/04/24 16:31 04/04/24 16:33 04/04/24 16:57 Temperature Temperature Source Pulse Rate 72 70 Pulse Rate [Apical] Pulse Rhythm Pulse Strength Respiratory Rate 20 16 Respiratory Effort / Characteristics Respiratory Depth Respiratory Pattern Blood Pressure 159/80 H Blood Pressure [Left Arm] Blood Pressure Mean 94 Blood Pressure Mean [Left Arm] Blood Pressure Position Blood Pressure Position [Left Arm] Pulse Oximetry 97 96 Oxygen Delivery Method Room Air Room Air Sepsis Recent Fever Within 48 Hours Sepsis New/Unexplained Change in Mental Status Sepsis Action Taken by Nursing 04/04/24 17:00 04/04/24 17:47 04/04/24 17:59 Temperature Temperature Source Pulse Rate 68 Pulse Rate [Apical] 98 H Pulse Rhythm Pulse Strength Respiratory Rate 18 Respiratory Effort / Characteristics Non-Labored Spontaneous Respiratory Depth Normal Respiratory Pattern Regular Blood Pressure 160/83 H Blood Pressure [Left Arm] 157/100 H Blood Pressure Mean 108 Blood Pressure Mean [Left Arm] 119 Blood Pressure Position Blood Pressure Position [Left Arm] Sitting Pulse Oximetry 96 Oxygen Delivery Method Room Air Sepsis Recent Fever Within 48 Hours Sepsis New/Unexplained Change in Mental Status Sepsis Action Taken by Nursing 04/04/24 18:01 04/04/24 18:09 04/04/24 18:21 Temperature Temperature Source Pulse Rate 67 70 Pulse Rate [Apical] Pulse Rhythm Pulse Strength Respiratory Rate 18 12 Respiratory Effort / Characteristics Respiratory Depth Respiratory Pattern Blood Pressure 151/76 H Blood Pressure [Left Arm] Blood Pressure Mean 107 Blood Pressure Mean [Left Arm] Blood Pressure Position Blood Pressure Position [Left Arm] Pulse Oximetry Oxygen Delivery Method Sepsis Recent Fever Within 48 Hours Sepsis New/Unexplained Change in Mental Status Sepsis Action Taken by Nursing 04/04/24 18:31 04/04/24 18:51 04/04/24 18:54 Temperature Temperature Source Pulse Rate 71 69 Pulse Rate [Apical] Pulse Rhythm Pulse Strength Respiratory Rate 20 21 Respiratory Effort / Characteristics Respiratory Depth Respiratory Pattern Blood Pressure 141/87 H Blood Pressure [Left Arm] Blood Pressure Mean 93 Blood Pressure Mean [Left Arm] Blood Pressure Position Blood Pressure Position [Left Arm] Pulse Oximetry Oxygen Delivery Method Sepsis Recent Fever Within 48 Hours Sepsis New/Unexplained Change in Mental Status Sepsis Action Taken by Nursing 04/04/24 19:00 04/04/24 19:06 04/04/24 21:49 Temperature Temperature Source Pulse Rate 70 74 Pulse Rate [Apical] Pulse Rhythm Pulse Strength Respiratory Rate 19 Respiratory Effort / Characteristics Respiratory Depth Respiratory Pattern Blood Pressure 146/84 H Blood Pressure [Left Arm] Blood Pressure Mean 124 Blood Pressure Mean [Left Arm] Blood Pressure Position Blood Pressure Position [Left Arm] Pulse Oximetry Oxygen Delivery Method Sepsis Recent Fever Within 48 Hours Sepsis New/Unexplained Change in Mental Status Sepsis Action Taken by Nursing Laboratory Data 04/04/24 15:38 04/04/24 15:38 Lab Results 04/04/24 04/04/24 Range/Units 15:38 15:54 WBC 3.57 L (4.8-10.8) K/ul RBC 4.31 (4.20-5.40) M/uL Hgb 13.9 (12.0-16.0) g/dl Hct 39.9 (37.0-47.0) % MCV 92.6 (80.0-100.0) fL MCH 32.3 (25.0-34.0) pg MCHC 34.8 (32.0-36.0) g/dL RDW Std Deviation 41.5 (36.4-46.3) fL RDW Coeff of Blessing 12.1 (11.5-14.5) % Plt Count 299 (130-400) K/uL MPV 9.6 (9.4-12.4) fL Immature Gran % (Auto) 0.6 % Neut % (Auto) 46.4 % Lymph % (Auto) 31.7 % [place] % (Auto) 19.9 % Eos % (Auto) 0.6 % Baso % (Auto) 0.8 % Neut # (Auto) 1.66 (1.40-6.50) K/uL Lymph # (Auto) 1.13 L (1.20-3.40) K/uL [place] # (Auto) 0.71 H (0.11-0.59) K/uL Eos # (Auto) 0.02 (0.00-0.50) K/uL Baso # (Auto) 0.03 (0.00-0.20) K/uL Immature Gran # (Auto) 0.02 (0.01-0.20) K/uL PT 10.3 (9.0-12.0) Seconds INR 0.9 (0.9-1.1) APTT 30 (21-31) Seconds PTT Ratio 1.1 Sodium 131 L (136-145) mmol/L Potassium 3.6 (3.5-5.1) mmol/L Chloride 96 L (98-107) mmol/L Carbon Dioxide 25 (21-32) mmol/L Anion Gap 10 (3-11) BUN 12 (6-23) mg/dl Creatinine 0.76 (0.6-1.2) mg/dl Est Cr Clr Drug Dosing 62.0 ml/min eGFR 85.83 BUN/Creatinine Ratio 15.8 (10-20) Glucose 85 (70-99(Fasting)) mg/dl Calcium 8.2 L (8.6-10.3) mg/dl Magnesium 1.8 (1.7-2.4) mg/dl Total Bilirubin 0.4 (0.2-1.0) mg/dl AST 28 (13-39) U/L ALT 29 (7-52) U/L Alkaline Phosphatase 55 (34-104) U/L Troponin I High Sens 5.6 (0-14) pg/ml Total Protein 6.9 (6.0-8.3) gm/dl Albumin 4.0 (3.4-5.0) gm/dl Globulin 2.9 (2.5-4.0) gm/dl Albumin/Globulin Ratio 1.4 (0.9-2) Urine Color Yellow Urine Appearance Turbid A (Clear) Urine pH 5.5 (4.5-7.5) Ur Specific K[place] 1.011 (1.000-1.030) Urine Protein Negative (Negative) Urine Glucose (UA) Negative (Negative) Urine Ketones Negative (Negative) Urine Blood 2+ H (Negative) Urine Nitrite Negative (Negative) Urine Bilirubin Negative (Negative) Urine Urobilinogen Negative (Negative) Ur Leukocyte Esterase 3+ H (Negative) Urine WBC (Auto) 0-5 (0-5) /hpf Urine RBC (Auto) >20 H (0-2) /hpf U Hyaline Cast (Auto) 3-5 H (0-2) /lpf U Epithel Cells (Auto) 0-2 (0-2) /hpf Urine Bacteria (Auto) None Seen (None Seen) Calcium Oxalate Crystal Present A (None Prsent) Hyaline Casts Present A (None Presnt) /lpf Adenovirus (PCR) Not Detected (NotDetected) B. pertussis DNA (PCR) Not Detected (NotDetected) B.parapertussis DNA PCR Not Detected (NotDetected) C. pneumoniae DNA (PCR) Not Detected (NotDetected) Coronavirus OC43 (PCR) Not Detected (NotDetected) Coronavirus HKU1 (PCR) Not Detected (NotDetected) Coronavirus 229E (PCR) Not Detected (NotDetected) SARS-CoV-2 (PCR) Not Detected (NotDetected) Coronavirus NL63 (PCR) Not Detected (NotDetected) Human Metapneumovir PCR Not Detected (NotDetected) Influenza A (H3) PCR DETECTED A (NotDetected) Influenza Type B (PCR) Not Detected (NotDetected) M. pneumoniae (PCR) Not Detected (NotDetected) Parainfluenza 1 (PCR) Not Detected (NotDetected) Parainfluenza 2 (PCR) Not Detected (NotDetected) Parainfluenza 3 (PCR) Not Detected (NotDetected) Parainfluenza 4 (PCR) Not Detected (NotDetected) RSV (PCR) Not Detected (NotDetected) Entero/Rhino (PCR) Not Detected (NotDetected) Administered Medications Discontinued Medications Aspirin (Aspirin Chew 324 Mg) 324 mg PO NOW STA Stop: 04/04/24 17:55 Last Admin: 04/04/24 18:06 Dose: 324 mg Documented By: RICHARD Ioversol (Optiray 320 125ml) 120 ml IV ONCE ONE Stop: 04/04/24 16:52 Last Admin: 04/04/24 16:51 Dose: 120 ml Documented By: BRIAN Lorazepam (Lorazepam 2 Mg/1 Ml Vial) 0.25 mg IV NOW STA Stop: 04/04/24 19:48 Last Admin: 04/04/24 20:11 Dose: 0.25 mg Documented By: LAST Oseltamivir Phosphate (Oseltamivir Phosphate 75 Mg Cap) 75 mg PO NOW STA; Protocol Stop: 04/04/24 17:55 Last Admin: 04/04/24 18:06 Dose: 75 mg Documented By: RICHARD Imaging Data Radiologist's Impression: Chest X-Ray 04/04/24 15:18 EXAM: Radiograph of the Chest 1 View INDICATION: Weakness and confusion. TECHNIQUE: Frontal view of the chest. COMPARISON: 02/27/2024 and 02/02/2024 FINDINGS: Lungs and pleural spaces: Stable dense nodule likely granuloma in the right upper lobe measuring approximately 8 x 12 mm. Relatively lucency in the apices stable consistent with COPD. No consolidation or pulmonary edema. No pleural effusion or pneumothorax. Heart: Shape and configuration within normal limits allowing for technique. Mediastinum: Normal contour. Bones/joints: No fracture, erosion or dislocation. Soft tissues: No abnormality noted. No radiopaque foreign body noted. Upper abdomen: No abnormality noted. IMPRESSION: No acute cardiopulmonary disease. ACT 112: Negative or not required by law. Electronically signed by Karolina Glasgow 04-04-2024 4:[address] 04/04/24 16:03 Clinical History: Neurological deficit Technique: Axial computed tomography images were obtained of the brain without intravenous contrast. Comparison is made to the prior CT dated 11/07/2023 Findings: There is unchanged cerebral atrophy, within expected limits for the patient's age. Areas of decreased attenuation are seen within the periventricular white matter, likely representing chronic small vessel ischemic disease. There is no definite sign of acute or old infarction. No intracranial hemorrhage is evident. No definite mass lesion is seen on this noncontrast examination. There is no midline shift or other form of herniation. No hydrocephalus is seen. No fracture is identified. The orbits and the visualized paranasal sinuses appear unremarkable. The mastoid air cells appear clear. Impression: 1. Cerebral atrophy and chronic small vessel ischemic disease 2. Otherwise unremarkable noncontrast CT of the brain Electronically signed by Temo Turner 04-04-2024 4:57 PM Head CTA 04/04/24 16:03 Clinical history: Neurological deficit Technique: Axial computed tomography images were obtained of the brain after the administration of intravenous contrast according to the CT angiogram protocol Findings: No definite stenosis or aneurysm is seen of the anterior, middle, or posterior cerebral artery circulations. The visualized vertebral arteries and the basilar artery appear unremarkable Impression: No definite stenosis or aneurysm of the intracranial arteries Electronically signed by Temo Turner 04-04-2024 5:11 PM Neck CTA 04/04/24 16:03 Clinical history: Altered mental status Technique: Axial computed tomography images were obtained of the neck after the administration of intravenous contrast according to the CT angiogram protocol Findings: There is a mild stenosis of the mid left common carotid artery with 30-40% diameter narrowing. There is a mild stenosis of the left carotid bulb with approximately 30% diameter narrowing. The remainder of the left internal carotid artery appears unremarkable No stenosis is seen of the right common carotid artery. The right carotid bulb appears normal. There is mild calcified plaque in the proximal right internal carotid artery, with less than 25% diameter narrowing. No stenosis of the external carotid arteries is seen The right vertebral artery is dominant. There is mild plaque in the distal right vertebral artery, without significant stenosis. The visualized thoracic aorta appears unremarkable There is multilevel degenerative disc disease and osteoarthritis of the cervical spine. There is a partially calcified nodule in the right upper lobe, likely a benign granuloma. There are irregular opacities in the lung apices, likely due to pleural-parenchymal scarring. There is apparent peripheral bronchial plugging in the right upper lobe. There is partially visualized mediastinal adenopathy Impression: 1. Mild stenosis of left carotid bulb 2. Mild stenosis of the mid left CCA 3. Mild plaque in the proximal right ICA, without stenosis 4. Mediastinal adenopathy, nonspecific in nature. Chest CT could be obtained for further evaluation Electronically signed by Temo Turner 04-04-2024 5:17 PM Discharge Plan Visit Data Chief Complaint: Neuro Symptoms/Deficit Stated Complaint: CONFUSION ED Provider: Aniket Chaudhary Discharge Problem: TIA (transient ischemic attack), Influenza Forms Stand Alone Forms: My [facility] Prescriptions Prescriptions: No Action albuterol sulfate 90 mcg/actuation HFA aerosol inhaler 2 puff inhalation Q6H PRN (Reason: shortness of breath or wheezing) Qty: 20.1 3RF montelukast 10 mg tablet 10 mg PO QAM Qty: 90 3RF venlafaxine 37.5 mg capsule,extended release 24hr 37.5 mg PO QAM Qty: 90 1RF Rx Instructions: Take 37.5mg w/ 150mg by mouth to equal 187.5mg every morning. venlafaxine 150 mg capsule,extended release 24hr 150 mg PO QAM Qty: 90 1RF Rx Instructions: Take 150mg w/ 37.5mg by mouth to equal 187.5mg every morning. losartan 25 mg tablet 25 mg PO QAM Qty: 90 3RF Suflave 178.7-7.3-0.5 gram recon soln See Rx Instructions PO .COMPLEX Qty: 2 0RF Rx Instructions: orally; orally; TAKE FIRST DOSE AT 6 PM AND SECOND DOSE 6 HOURS PRIOR TO PROCEDURE BIN: [id number] PCN: [id number] GROUP: [id number] Gemtesa 75 mg tablet 75 mg PO DAILY Qty: 30 2RF mecobalamin (vitamin B12) 1,000 mcg tablet,chewable 1,000 mcg PO DAILY Qty: 90 3RF azelastine 137 mcg (0.1 %) spray,non-aerosol 2 spray intranasal DAILY Qty: 30 11RF biotin 5,000 mcg tablet,chewable 5,000 mcg PO DAILY Alvesco 80 mcg/actuation HFA aerosol inhaler 2 puff inhalation BID Qty: 6.1 3RF Rx Instructions: WITH A RINSE OF MOUTH AFTERWARDS. (DME) Spacer for Inhaler Misc See Rx Instructions .Route Qty: 1 0RF Rx Instructions: USE DIRECTED WITH ALVESCO cholecalciferol (vitamin D3) 50 mcg (2,000 unit) capsule 50 mcg PO QAM loratadine 10 mg Tablet 10 mg PO QAM calcium carbonate 500 mg calcium (1,250 mg) tablet 1,000 mg PO QAM rosuvastatin 5 mg tablet 5 mg PO 3XWK Rx Instructions: 5 mg PO Mon-Wed-Fri; Prolia 60 mg/mL syringe 60 mg subcut UD Rx Instructions: twice yearly Referrals Referrals: Rama Morris MD [Primary Care Provider] -
[2024-04-04] MEDS ORDERED: POLYETHYLENE (MIRALAX) 17 GM PACK PO PRN (21:59)
[2024-04-04] MEDS ORDERED: OSELTAMIVIR PHOSPHATE 75 MG CAP PO SCH (21:59)
[2024-04-04] MEDS ORDERED: LABETALOL HCL IV 5 MG/ML 20ML IV PRN (21:59)
[2024-04-04] MEDS ORDERED: ACETAMINOPHEN 325 MG TAB PO PRN (21:59)
[2024-04-04] MEDS ORDERED: ALBUT/IPRATROP 3MG/0.5MG NEB 3 ML VIAL NEB PRN (21:59)
[2024-04-04] MEDS ORDERED: MELATONIN 3 MG TAB PO PRN (21:59)
[2024-04-04] MEDS ORDERED: ONDANSETRON INJ 2 MG/ML 2 ML VIAL IV PRN (21:59)
--- NOTE | 2024-04-04 22:24 | Magnetic Resonance Report ---
Exam(s): MRI HEAD Without Contrast EXAM: MR Head Without Intravenous Contrast CLINICAL HISTORY: Reason for exam: Aphasic episode. TECHNIQUE: Magnetic resonance images of the head/brain without intravenous contrast in multiple planes. COMPARISON: December 21, 2020 MRI brain and November 07, 2023 CT head FINDINGS: Brain: Mild patchy periventricular and deep white matter T2 hyperintensities consistent with chronic small vessel disease and/or senescent changes. No areas of diffusion restriction are seen to indicate acute stroke. No hemorrhage. Ventricles: Unremarkable. No ventriculomegaly. Bones/joints: Unremarkable. No acute fracture. Sinuses: Trace amount of mucosal thickening in the dependent portion of the left maxillary sinus. The remaining paranasal sinuses are unremarkable. Mastoid air cells: Unremarkable as visualized. No mastoid effusion. Orbits: Unremarkable as visualized. IMPRESSION: Mild patchy periventricular and deep white matter T2 hyperintensities consistent with chronic small vessel disease and/or senescent changes. No areas of diffusion restriction are seen to indicate acute stroke. Electronically signed by: Yayo Jurado MD 04/04/24 22:23 PM
[2024-04-04] MEDS: ENOXAPARIN INJ 40 MG/0.4 ML SYR SQ SCH (23:00)
[2024-04-05 04:53] LABS: BUN Creatinine Ratio 16.2 (10-20); Calcium 8.2 mg/dl (8.6-10.3); Chol HDL Ratio 2.9 (0-5); Creatinine Clr Calc Pharmacy 63.7 ml/min; Potassium 4.4 mmol/L (3.5-5.1)
[2024-04-05 06:49] LABS: Estimated Average Glucose 111 mg/dl; Hemoglobin A1C 5.5 % (4.5-5.6)
--- NOTE | 2024-04-05 07:38 | Hospitalist Progress Note ---
Date of Service April 05, 2024 Assessment & Plan (1) Aphasia: (2) Influenza A: Plan 68-year-old female PMHx HLD, HTN, asthma, OP, MS, and vitamin B12 deficiency presenting to ED for an aphasic episode. States that the episode around 1200- 1300 today arrival, lasting approximately 30 minutes in duration and then resolved. Was unable to read news article or prescription bottles, but able to understand spoken words. No additional neurological symptoms were experienced at this time. Upon admission, symptoms had resolved but she came to be evaluated as recommended by her PCP. #Aphasic episode, resolved Presenting w/ aphasic episode lasting approximately 30 minutes, without a dditional neuro deficits, no deficits on exam, no current symptoms. Case is discussed between ED physician and neurologist recommending aspirin and stroke workup. CT head and CTA head/neck w/o acute findings. ABCD2 score 3 (age, elevated BP, duration of symptoms). - CT head cerebral atrophy chronic small vessel disease; head CTA stenosis or aneurysm intracranial arteries; neck CTA mild stenosis L carotid bulb and L CCA, mild plaque in proximal R ICA without stenosis, mediastinal adenopathy (h/o pulm nodules per chart) - Troponin 5.6; EKG normal sinus rate 77 bpm; pending 2D Echo Bubble - A1c (07/2023) 5.9%, pending repeat; lipid panel (2020) total 225, LDH 166, HDL 73, TG 67, pending repeat- On rosuvastatin 5mg 3x/w (MWF) - Will increase to high intensity pending lipid results - Initiate DVT prevention therapy - lovenox - following MRI - ASA 324mg given in ED; continue 81mg daily - No DAPT added, ABCD2 score 3 - Will allow for permissive HTN until MRI results, losartan held at admission - Labetalol 10mg IV prn q10min SBP > 200 - MRI pending MRI negative for acute stoke BP 114/76 this morning, will hold off losartan for now Na was 131 on admission,, ?possible SIADH type syndrome from influenza as culprit? Did she miss any of her effexor with recent illness given can have sx withdrawal if missing dose? Can also contribute to low Na level #Influenza A ~ 1 week of cough, body aches, sore throat; No alleviating symptoms. Did not get yearly influenza vaccine in the past but does normally receive this vaccine - BioFire positive for influenza A; CXR without acute cardiopulmonary disease; Lungs unremarkable on exam - Tamiflu 75mg BID daily; added Chloraseptic spray for sore throat prn - Given h/o asthma, throat pain when coughing, and fear of coughing as to not ag gravate throat pain - Inhalers switched to nebs #Hyponatremia Likely secondary to poor oral intake over past week from illness; no overt symptoms at this time. Clinically hypovolemic. - Na 131; glucose WNL-- Deferred serum osmol, urine Na, and urine osmol at time of admission; if Na does not improve then consider obtaining - Promote oral hydration, will add fluids as necessary following MRI - BMP am #Hypocalcemia Asymptomatic currently, on calcium carbonate 1000mg daily as outpatient. - Ca 8.2, albumin WNL - Increase Ca carb to twice daily- Recheck am #Multiple sclerosis, Uhthoff phenomenon- Recent neurology visit 10/2023 in [place], most recent MRI May 2022 mild lesion in periventricular area involving corpus callosum, MRI spine with chronic C2 demyelination lesion #Asthma/allergic rhinitis- Inhalers adjusted to nebs for inpatient course but then to switch back to inhalers at discharge, loratadine, montelukast #HTN- Losartan #HLD- Rosuvastatin 5mg 3x/week as outpatient (M/W/) #OAB- Follows with urology; Vibegron #Anxiety- Venlafaxine #OP- Prolia SQ outpatient, not to be given inpatient Dispo: Admit, med telemetry VTE prophylaxis: Lovenox This document was dictated utilizing [employer]. Please excuse any grammatical errors that may be secondary to use of this software. Admission and Anticipated Discharge Date Admission Date: April 04, 2024 Subjective Eval this morning, at bedside Aphasia resolved, breathing stable. 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 Crestor to be daily Tamiflu to continue. RN to provide incentive spirometer and demonstrae use prior to dc, retrun sx discussed. DC, echo pending. Oupt f/u Results & Data Results & Data Vital Signs (Past 12 Hours) Vital Signs Temp Pulse Pulse Resp BP BP Pulse Ox 04/05/24 07:13 79 04/05/24 03:38 36.8 C 76 20 114/76 94 04/05/24 02:25 70 16 114/61 98 04/05/24 00:01 66 16 125/69 98 04/04/24 23:44 36.8 C 71 17 106/52 L 99 04/04/24 22:07 36.9 C 70 17 110/64 96 04/04/24 21:49 74 O2 Del Method 04/05/24 07:13 04/05/24 03:38 04/05/24 02:25 Room Air 04/05/24 00:01 Room Air 04/04/24 23:44 Room Air 04/04/24 22:07 Room Air 04/04/24 21:49 PG Care Time/CCT Total # of Minutes Spent Total Time Spent with Patient: Total time spent is greater than 50% in coordination of care (as documented) at patient's floor/unit and/or counseling patient: Coding Diagnoses Aphasia R47.01 Influenza A J10.1
[2024-04-05] MEDS: BUDESONIDE 0.25 MG/2 ML VIAL (PULMICORT) NEB SCH (08:09)
[2024-04-05] MEDS: CYANOCOBALAMIN (B-12) 500 MCG TABLET PO SCH (09:05)
[2024-04-05] MEDS: LORATADINE 10 MG TAB PO SCH (09:06)
[2024-04-05] MEDS: CHOLECALCIFEROL 25 MCG (1000 UNITS) TAB PO SCH (09:06)
[2024-04-05] MEDS: VIBEGRON 75 MG TAB PO SCH (09:06)
[2024-04-05] MEDS: CALCIUM CARBONATE 1250MG TAB PO SCH (09:07)
[2024-04-05] MEDS: OSELTAMIVIR PHOSPHATE 75 MG CAP PO SCH (09:07)
[2024-04-05] MEDS: ROSUVASTATIN CALCIUM 5 MG TAB PO SCH (09:08)
[2024-04-05] MEDS: VENLAFAXINE HCL XR 150 MG CAPXR PO SCH (09:08)
[2024-04-05] MEDS: MONTELUKAST SODIUM 10 MG TABLET PO SCH (09:08)
[2024-04-05] MEDS: VENLAFAXINE HCL XR 37.5 MG CAPXR PO SCH (09:08)
[2024-04-05] MEDS: ASPIRIN 81 MG ECTAB PO SCH (09:18)
[2024-04-05] MEDS: CHLORASEPTIC (PHENOL) 1.4% SOLN 180 ML BTL MT PRN (09:19)
[2024-04-05] MEDS: AZELASTINE HCL 0.1% NASAL 200 SPRAYS/27,400 MCG BTL SCH (09:19)
[2024-04-05 09:36] VITALS: RESP 18
[2024-04-05 11:51] VITALS: TEMP 98.1; O2SAT 95
--- NOTE | 2024-04-05 12:09 | Discharge Summary ---
Discharge Summary Date of Service April 05, 2024 Principal Dx & Hospital Course #1 = Principal Diagnosis (1) Aphasia: 68-year-old female PMHx HLD, HTN, asthma, OP, MS, and vitamin B12 deficiency presenting to ED for an aphasic episode. States that the episode around 0829-0912 day of arrival/lasting 30 minutes in duration and resolved. Reported was unable to read news article or prescription bottles, but able to understand spoken words. No additional neurological symptoms were experienced at this time. Upon admission, symptoms had resolved but she came to be evaluated as recommended by her PCP. CT head, CTA head/neck without acute finding. ABCD2 score 3 (age/BP/duration symptoms) Was given aspirin, continued 81mg daily BP meds held/permissive HTN and MRI brain obtained for eval MRI with mild patchy periventricular and deep white matter T2 hyperintensities c/w small vessel disease. No areas of diffusion restriction seen to indicate acute stroke Lipid panel w/ improvement in cholesterol and rec to increase to daily vs discussing 5x/week with PCP for possible myalgia type pains A1c 5.5, acceptable/no meds ECHO negative for shunt BPs stable, no further sx and wanting to go home. Discussed w/ patient about crestor increase and continuing ASA 81mg daily as tolerated without issue for possible TIA however notable she mentions was to have holter monitor this fall but was busy w/ holiday and never hooked up. Rec'd she hook this up and continue ASA 81mg daily until discussed with PCP but could continue daily retirement unless arrhythmia picked up on monitor however telemetry was sinus without issue. Also notable hx MS and should likely f/u with her Neurologist but suspect event brought about from significant fatigue/illness/myalgias from influenza and dehydration prior to admission which improved and supportive care for influenza as below however did not have evidence for bacterial PNA (2) Influenza A: tamiflu/supportive care provided (3) Hyponatremia: on admission but resolved on repeat and suspect due to poor PO intake but which improved with supportive care/tamiflu as above no TSH checked but was normal this past January. No arrhythmia on monitor but if recurs should be eval Also can have an SIADH type syndrome w/ influenza and could also have been contributing. No sx at dc/stable Na and f/u PCP. Oral hydration/PO intake encouraged Plan DVT proph w/ Lovenox SQ inpatient Dispo: dc on ASA 81mg daily, tamiflu, f/u PCP and neurology rec'd. inc crestor but lipid panel acceptable and no findings of stroke on imaging. Notes For Next Care Provider monitor for bacterial PNA should have f/u on event monitor results as encouraged patient to place as was delivered but reported busy holiday time discussed recs about increase crestor to daily (or consider 5x/wk) as improvement in panel but discussed diet as well -- she does appear w/ some mild cramping/myalgias in legs at baseline but reported she thought this was just restless legs. I encouraged her to follow up to discuss and rec'd to take this medication at night consider repeat thyroid testing if symptoms rec f/u with Neurology for ongoing management of her MS Medication Changes From Visit Tamiflu PO ASA 81mg daily Increase crestor frequency to daily Admission HPI Per Admitting Provider 68-year-old female PMHx HLD, HTN, asthma, OP, MS, and vitamin B12 deficiency presenting to ED for an aphasic episode. States that the episode around 1200- 1300 today arrival, lasting approximately 30 minutes in duration and then resolved. States that she was sitting on her couch reading the news when suddenly she was unable to understand the words that were on the article. States after that she decided to go get a drink because she thought maybe she was dehydrated and then took her antidepressants at that time as well. She states that whenever she went to her medicine once, she was only able to recognize the bottle of antidepressants as the bottle is larger in size than her other medications, but she was unable to read what was on any of the bottles or understand what they said. States that she got more to drink and then sat back down on the couch and was watching an episode on President James where people were sitting in remembrance of him, however she could not recall who the people were more read the words on the screen but she could understand the words that were being sung. She states this did resolve rather momentarily with no more than 30 minutes of duration total, she felt "spacey" after the episode. Denying any additional symptoms at this time, to include weakness, numbness/tingling, headache, vision changes, or dizziness. Also reports she has been sick for the past week with headache, sore throat, body aches and cough. She is not active this week as she was trying to heal from the illness, but her main complaint was sore throat whenever she is coughing. She is denying chest pain, shortness of breath, palpitations, abdominal pain, N/V/D/C, or LUTS. Patient only took her antidepressants today does not believe that she took other medications. Please see Dr. Jurado's attestation for adjustments/additions to treatment plan. Admission Exam Per Admitting Provider General: No acute distress Skin: Warm and dry, without rashes or lesions Head: Normocephalic, atraumatic Eyes: PERRL, conjunctivae clear, sclera non-icteric; EOM intact ENT: External ear and ear canal without swelling; nose atraumatic; good dentition, tongue normal appearance, pharynx normal without tonsillar swelling or exudate Neck: Supple, no LAD; no JVD Cardio: RRR, no M/G/R, S1 and S2 normal Resp: No respiratory distress; initally ? crackles but resolved w/ cough; Lungs CTA in all lobes bilaterally, no wheezes, rales, or rhonchi Abdomen: Soft, symmetric, nontender; No masses or hepatosplenomegaly; Bowel sounds normoactive MSK: No deformities, full ROM throughout; pulses palpable and equal; no edema. Neuro: II- PERRL, no VF deficits III, IV, - EOMs intact, no deviation, no nystagmus V- Normal sensation in all locations VII- No asymmetry, no nasolabial fold flattening VIII- Normal hearing to speech IX, X- Normal palatal elevation, no ulnar deviation XI- 5/5 head turn + shoulder shrug bilaterally XII- Midline tongue protrusion Motor: 4/5 strength throughout BUE/BLE; no pronator drift Reflexes: WNL throughout Sensory: Normal sensation throughout, no hemineglect, Romberg absent Coordination: Normal [id number], no tremor Gait: Unable to asses; no complaints Psych: Appropriate mood and affect; good judgement and insight. present in room at time of visit. Discharge Exam General 68yo female sitting up in bed, anxious to discharge, NAD, at bedside Head atraumatic, normocephalic, mmm, trachea midline Resp: even/unlabored, no wheezing/rales/crackles, on room air CV: RRR, sinus on monitor, no m/r/g, no edema GI: +BS, soft/NT MSK/Neuro: nonfocal, no confusion, no slurred speech/facial droop, answering questions appropriately Psych: AOx3, cooperative/pleasant with exam Discharge Plan Discharge Items Patient Disposition: Home - Self-Care Reason For Visit: APHASIC EPISODE Discharge Diagnosis: Influenza, TIA Goals: You have been hospitalized for an acute medical problem. During your stay at [facility], we have made an effort to correct the problem that brought you to the hospital while keeping you as comfortable as possible. Medications were used to bring your condition under control and your discharge instructions will include directions for any medications you should take after leaving the hospital. Please make sure you see your Primary Care Provider as part of your follow up plan. Activity: Resume your previous activity Non-emergency contact: Primary Care Provider Call non-emergency contact if: you have any medication questions, your symptoms worsen, your pain is not controlled, your pain is concerning for you and you have a fever Follow-up/Referrals: Rama Morris MD [Primary Care Provider] - 04/12/24 10:30 am Diet: Heart Healthy Addtl Attending Provider Instructions: You have been hospitalized for concerns for stroke. 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 You have been in normal sinus rhythm while in the monitor and rates controlled. Your cholesterol was better but you can increase your rosuvastatin (crestor) to every day for now but can discuss with primary care about maybe 5x/week instead of 3x/week as previously taking. You were positive for influenza, started on tamiflu and should continue twice daily for total 10 days. Please continue incentive spirometer and monitor for any worsening breathing/fever/sputum production or shortness of breath but do not appear to have bacterial pneumonia and no need for antibiotics at this time. Please continue to stay well hydrated and push oral fluids. Follow up with primary care in the next week to follow up after discharge/management of care. Please return to ER with any worsening shortness of breath, fever, sputum production, confusion, repeat aphasia or other symptoms concerning for you. Take care! Pending Studies at Discharge: No Stand-Alone Forms: My [facility], Smoking Cessation Medications and DC Order Prescriptions: New aspirin 81 mg Tablet,Delayed Release (Dr/Ec) 81 mg PO DAILY Qty: 30 0RF oseltamivir [Tamiflu] 75 mg Capsule 75 mg PO BID 4 Days Qty: 8 0RF Continued albuterol sulfate 90 mcg/actuation HFA aerosol inhaler 2 puff inhalation Q6H PRN (Reason: shortness of breath or wheezing) Qty: 20.1 3RF montelukast 10 mg tablet 10 mg PO QAM Qty: 90 3RF venlafaxine 37.5 mg capsule,extended release 24hr 37.5 mg PO QAM Qty: 90 1RF Rx Instructions: Take 37.5mg w/ 150mg by mouth to equal 187.5mg every morning. venlafaxine 150 mg capsule,extended release 24hr 150 mg PO QAM Qty: 90 1RF Rx Instructions: Take 150mg w/ 37.5mg by mouth to equal 187.5mg every morning. losartan 25 mg tablet 25 mg PO QAM Qty: 90 3RF Suflave 178.7-7.3-0.5 gram recon soln See Rx Instructions PO .COMPLEX Qty: 2 0RF Rx Instructions: orally; orally; TAKE FIRST DOSE AT 6 PM AND SECOND DOSE 6 HOURS PRIOR TO PROCEDURE BIN: [id number] PCN: [id number] GROUP: [id number] Gemtesa 75 mg tablet 75 mg PO DAILY Qty: 30 2RF mecobalamin (vitamin B12) 1,000 mcg tablet,chewable 1,000 mcg PO DAILY Qty: 90 3RF azelastine 137 mcg (0.1 %) spray,non-aerosol 2 spray intranasal DAILY Qty: 30 11RF biotin 5,000 mcg tablet,chewable 5,000 mcg PO DAILY Alvesco 80 mcg/actuation HFA aerosol inhaler 2 puff inhalation BID Qty: 6.1 3RF Rx Instructions: WITH A RINSE OF MOUTH AFTERWARDS. (DME) Spacer for Inhaler Misc See Rx Instructions .Route Qty: 1 0RF Rx Instructions: USE DIRECTED WITH ALVESCO cholecalciferol (vitamin D3) 50 mcg (2,000 unit) capsule 50 mcg PO QAM loratadine 10 mg Tablet 10 mg PO QAM calcium carbonate 500 mg calcium (1,250 mg) tablet 1,000 mg PO QAM Prolia 60 mg/mL syringe 60 mg subcut UD Rx Instructions: twice yearly Changed rosuvastatin 5 mg tablet 5 mg PO 5XWK Qty: 0 0RF Rx Instructions: 5 mg PO Mon-Wed-Fri; Discharge Orders: Discharge Order (Routine); Ordered 04/05/24 Ordered By: Shea Bradley Admission Data Admit Date/Time: 04/04/24 19:47 Attending Provider: Clarence Carrillo Admit Provider: Sophia Jurado Primary Care Provider: Rama Morris V. Other Providers: Sophia Jurado Other Interventions: Discharge Summary Assessment (RN) Last Done: 04/05/24 12:27 Hospital Stay Data Consultations 04/04/24 19:01 ED Decision to Admit Stat Diagnostic Imagining Performed Chest X-Ray 04/04/24 15:18 EXAM: Radiograph of the Chest 1 View INDICATION: Weakness and confusion. TECHNIQUE: Frontal view of the chest. COMPARISON: 02/27/2024 and 02/02/2024 FINDINGS: Lungs and pleural spaces: Stable dense nodule likely granuloma in the right upper lobe measuring approximately 8 x 12 mm. Relatively lucency in the apices stable consistent with COPD. No consolidation or pulmonary edema. No pleural effusion or pneumothorax. Heart: Shape and configuration within normal limits allowing for technique. Mediastinum: Normal contour. Bones/joints: No fracture, erosion or dislocation. Soft tissues: No abnormality noted. No radiopaque foreign body noted. Upper abdomen: No abnormality noted. IMPRESSION: No acute cardiopulmonary disease. ACT 112: Negative or not required by law. Electronically signed by Karolina Glasgow 04-04-2024 4:[address] 04/04/24 16:03 Clinical History: Neurological deficit Technique: Axial computed tomography images were obtained of the brain without intravenous contrast. Comparison is made to the prior CT dated 11/07/2023 Findings: There is unchanged cerebral atrophy, within expected limits for the patient's age. Areas of decreased attenuation are seen within the periventricular white matter, likely representing chronic small vessel ischemic disease. There is no definite sign of acute or old infarction. No intracranial hemorrhage is evident. No definite mass lesion is seen on this noncontrast examination. There is no midline shift or other form of herniation. No hydrocephalus is seen. No fracture is identified. The orbits and the visualized paranasal sinuses appear unremarkable. The mastoid air cells appear clear. Impression: 1. Cerebral atrophy and chronic small vessel ischemic disease 2. Otherwise unremarkable noncontrast CT of the brain Electronically signed by Temo Turner 04-04-2024 4:57 PM Head CTA 04/04/24 16:03 Clinical history: Neurological deficit Technique: Axial computed tomography images were obtained of the brain after the administration of intravenous contrast according to the CT angiogram protocol Findings: No definite stenosis or aneurysm is seen of the anterior, middle, or posterior cerebral artery circulations. The visualized vertebral arteries and the basilar artery appear unremarkable Impression: No definite stenosis or aneurysm of the intracranial arteries Electronically signed by Temo Turner 04-04-2024 5:11 PM Neck CTA 04/04/24 16:03 Clinical history: Altered mental status Technique: Axial computed tomography images were obtained of the neck after the administration of intravenous contrast according to the CT angiogram protocol Findings: There is a mild stenosis of the mid left common carotid artery with 30-40% diameter narrowing. There is a mild stenosis of the left carotid bulb with approximately 30% diameter narrowing. The remainder of the left internal carotid artery appears unremarkable No stenosis is seen of the right common carotid artery. The right carotid bulb appears normal. There is mild calcified plaque in the proximal right internal carotid artery, with less than 25% diameter narrowing. No stenosis of the external carotid arteries is seen The right vertebral artery is dominant. There is mild plaque in the distal right vertebral artery, without significant stenosis. The visualized thoracic aorta appears unremarkable There is multilevel degenerative disc disease and osteoarthritis of the cervical spine. There is a partially calcified nodule in the right upper lobe, likely a benign granuloma. There are irregular opacities in the lung apices, likely due to pleural-parenchymal scarring. There is apparent peripheral bronchial plugging in the right upper lobe. There is partially visualized mediastinal adenopathy Impression: 1. Mild stenosis of left carotid bulb 2. Mild stenosis of the mid left CCA 3. Mild plaque in the proximal right ICA, without stenosis 4. Mediastinal adenopathy, nonspecific in nature. Chest CT could be obtained for further evaluation Electronically signed by Temo uTrner 04-04-2024 5:17 PM Brain MRI 04/04/24 19:47 Exam(s): MRI HEAD Without Contrast EXAM: MR Head Without Intravenous Contrast CLINICAL HISTORY: Reason for exam: Aphasic episode. TECHNIQUE: Magnetic resonance images of the head/brain without intravenous contrast in multiple planes. COMPARISON: December 21, 2020 MRI brain and November 07, 2023 CT head FINDINGS: Brain: Mild patchy periventricular and deep white matter T2 hyperintensities consistent with chronic small vessel disease and/or senescent changes. No areas of diffusion restriction are seen to indicate acute stroke. No hemorrhage. Ventricles: Unremarkable. No ventriculomegaly. Bones/joints: Unremarkable. No acute fracture. Sinuses: Trace amount of mucosal thickening in the dependent portion of the left maxillary sinus. The remaining paranasal sinuses are unremarkable. Mastoid air cells: Unremarkable as visualized. No mastoid effusion. Orbits: Unremarkable as visualized. IMPRESSION: Mild patchy periventricular and deep white matter T2 hyperintensities consistent with chronic small vessel disease and/or senescent changes. No areas of diffusion restriction are seen to indicate acute stroke. Electronically signed by: Yayo Jurado MD 04/04/24 22:23 PM ECHOCARDIOGRAM 04/05/23 Normal LV size. Moderate LVH. LVEF 65-70%. No regional wma. Normal RV size/function. No significant valvular pathology. Normal estimated PA pressure. NEGATIVE saline contrast study for interatrial shunt. No prior study for comparison. Pending Results Patient Have Any Pending Studies at Discharge: No Discharge Instructions Given to Patient (Per Discharging Provider) You have been hospitalized for concerns for stroke. 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 You have been in normal sinus rhythm while in the monitor and rates controlled. Your cholesterol was better but you can increase your rosuvastatin (crestor) to every day for now but can discuss with primary care about maybe 5x/week instead of 3x/week as previously taking. You were positive for influenza, started on tamiflu and should continue twice daily for total 10 days. Please continue incentive spirometer and monitor for any worsening breathing/fever/sputum production or shortness of breath but do not appear to have bacterial pneumonia and no need for antibiotics at this time. Please continue to stay well hydrated and push oral fluids. Follow up with primary care in the next week to follow up after discharge/management of care. Please return to ER with any worsening shortness of breath, fever, sputum production, confusion, repeat aphasia or other symptoms concerning for you. Take care! Supervising Physician Co-Signing Physician Notes The patient was not seen by me. The chart was reviewed. Case discussed with ALYSSIA Valdes. Agree with assessment and plan Total Time Total Time Spent Total Time Spent (In Minutes): 40 Coding Level of Care Code 46065 INP/OBS DISCH >30 MIN Diagnoses Aphasia R47.01 Influenza A J10.1 Hyponatremia E87.1
[2024-04-05 12:27] VITALS: BP 113/74; PULSE 73
--- NOTE | 2024-04-05 15:25 | XCELERA ---
[id number] \\[id number]
== END 2024-04-05 14:15 | disposition home or self-care (01) ==
LOC: ED 15:09 → EDINP 15:09 → SUATTDRO 19:47 → 2N 04-05 09:00